=== PATIENT | male | born 1950 | race Caucasian/White ===

== ENCOUNTER → 2016-10-18 | Outpatient (CLI) | payer MEDICARE, OTHER ==
[2016-10-18 12:21] LABS: CH 30.8; CHCM 33.7; HCT 47.1 % (39.0-53.0); HDW 2.65; HGB 15.4 gm/dL (13.0-17.5); MCHC 32.7 g/dL (31.0-37.0); MCV 91.7 fL (80.0-100.0); Mean Platelet Volume 7.5; RBC 5.14 m/uL (4.30-5.90); RDW 12.4 % (11.5-15.5); WBC 12.4 k/uL (3.8-10.6)
[2016-10-18 12:24] LABS: Appearance,Urine Clear (Clear); Bilirubin,Urine Negative (Negative); Glucose,Urine (UA) Negative (Negative); Ketones,Urine Trace (Negative); Leukocyte Esterase,Urine Negative (Negative); Nitrite,Urine Negative (Negative); Protein,Urine Trace (Negative); Specific Gravity,Urine 1.018 (1.001-1.035); UA Billing (MACRO vs. MICRO) CHEM; Urobilinogen,Urine <2.0 mg/dL (<2.0)
[2016-10-18 12:52] LABS: ALT 28 U/L (21-72); AST 19 U/L (17-59); Alkaline Phosphatase 78 U/L (38-126); Anion Gap 13 mmol/L; Blood Urea Nitrogen 10 mg/dL (9-20); Calcium 9.9 mg/dL (8.4-10.2); Carbon Dioxide 25 mmol/L (22-30); Chloride 101 mmol/L (98-107); Glucose 174 mg/dL (74-99); Non-African American GFR(MDRD) >60 (>60 ml/min/1.73 sqM); Potassium 4.8 mmol/L (3.5-5.1); Sodium 139 mmol/L (137-145); Total Bilirubin 0.8 mg/dL (0.2-1.3); Total Protein 7.6 g/dL (6.3-8.2)
== END | disposition home or self-care (01) ==
LOC: LABWHC1 11:39
PROVIDERS: ATTEND Neurological Surgery
DX: Z01.812 Encounter for preprocedural laboratory examination (principal); M48.02 Spinal stenosis, cervical region; E11.9 Type 2 diabetes mellitus without complications; E78.5 Hyperlipidemia, unspecified; Z51.81 Encounter for therapeutic drug level monitoring; Z79.01 Long term (current) use of anticoagulants
CPT/HCPCS: 36415; 80053; 81003; 85027; 85730; 87070; 87086

== ENCOUNTER 2016-11-15 11:35 | Emergency (ER) | payer MEDICARE, OTHER ==
[2016-11-15 11:44] VITALS: RESP 18
[2016-11-15] MEDS ORDERED: HYDROmorphone 2 MG/ML 1 ML SYRINGE IM STA (12:23)
--- NOTE | 2016-11-15 12:55 | ED ---
General Adult HPI - General Chief complaint: Fall Stated complaint: POST OP NECK INJURY FROM FALL Time Seen by Provider: 11/15/16 11:48 Source: patient, RN notes reviewed, old records reviewed Mode of arrival: wheelchair Limitations: no limitations - History of Present Illness Initial comments: This is a 66-year-old male ER status post slip and fall. Patient has been fall S night with checking his furnace out. Patient is complaining of neck back and lower back pain. Patient does have significant surgical history for cervical stenosis as well as multiple different cervical spine surgeries. Patient most recently had surgery less than a month ago. His postop course has been well without difficulty, patient denies any neurological complaints. Patient denies loss of consciousness for fall, not on blood thinners. Patient states he is having neck pain. He went to bed last night with some neck pain evaluations and thought he was just bruised patient was able to walk when he woke this morning but when he awoke this morning his pain was worse. - Related Data Home Medications Medication Instructions Recorded Confirmed Ascorbic Acid [Vitamin C] 1,000 mg PO DAILY 11/15/16 11/15/16 Aspirin [Adult Low Dose Aspirin EC] 81 mg PO DAILY 11/15/16 11/15/16 Diazepam [Valium] 10 mg PO Q6H PRN 11/15/16 11/15/16 Empagliflozin [Jardiance] 10 mg PO DAILY 11/15/16 11/15/16 Linagliptin [Tradjenta] 5 mg PO DAILY 11/15/16 11/15/16 Simvastatin [Zocor] 40 mg PO DAILY 11/15/16 11/15/16 glipiZIDE [Glucotrol] 5 mg PO AC-BID 11/15/16 11/15/16 metFORMIN HCL [Glucophage] 500 mg PO QID 11/15/16 11/15/16 oxyCODONE-APAP 5-325MG [Percocet 1 tab PO Q8H PRN 11/15/16 11/15/16 5-325 mg] Allergies Allergy/AdvReac Type Severity Reaction Status Date / Time No Known Allergies Allergy Verified 11/15/16 12:18 Review of Systems ROS Statement: Those systems with pertinent positive or pertinent negative responses have been documented in the HPI. ROS Other: All systems not noted in ROS Statement are negative. Past Medical History Past Medical History: Diabetes Mellitus History of Any Multi-Drug Resistant Organisms: None Reported Past Surgical History: Cholecystectomy Additional Past Surgical History / Comment(s): neck surgery, right knee, rotator cuff right, mid back surgery Past Psychological History: No Psychological Hx Reported Smoking Status: Never smoker Past Alcohol Use History: None Reported Past Drug Use History: None Reported General Exam - General Exam Comments Initial Comments: Incision of left posterior neck is clean dry intact, patient has cervical spine collar in place, aspen Limitations: no limitations General appearance: alert, in no apparent distress Head exam: Present: atraumatic, normocephalic, normal inspection Eye exam: Present: normal appearance, PERRL, EOMI. Absent: scleral icterus, conjunctival injection, periorbital swelling ENT exam: Present: normal exam, mucous membranes moist Neck exam: Present: normal inspection. Absent: tenderness, meningismus, lymphadenopathy Respiratory exam: Present: normal lung sounds bilaterally. Absent: respiratory distress, wheezes, rales, rhonchi, stridor Cardiovascular Exam: Present: regular rate, normal rhythm, normal heart sounds. Absent: systolic murmur, diastolic murmur, rubs, gallop, clicks GI/Abdominal exam: Present: soft, normal bowel sounds. Absent: distended, tenderness, guarding, rebound, rigid Extremities exam: Present: normal inspection, full ROM, normal capillary refill. Absent: tenderness, pedal edema, joint swelling, calf tenderness Back exam: Present: normal inspection, tenderness, paraspinal tenderness, vertebral tenderness (Lumbar) Neurological exam: Present: alert, oriented X3, CN II-XII intact Psychiatric exam: Present: normal affect, normal mood Skin exam: Present: warm, dry, intact, normal color. Absent: rash Course Vital Signs 11/15/16 11/15/16 11:38 15:09 Temperature 97.7 F 98.3 F Pulse Rate 116 H 98 Respiratory 18 18 Rate Blood Pressure 144/88 153/77 O2 Sat by Pulse 97 97 Oximetry - Reevaluation(s) Reevaluation #1: 11/15/16 12:55 Patient's pain at this point is adequately controlled Reevaluation #2: 11/15/16 14:28 Patient remains without neurological deficit at this time, pain remained controlled, no loss of bowel or bladder EKG Findings - EKG Comments: EKG Findings:: EKG shows normal sinus rhythm rate of 97; NM 150, QRS 86, QTC 441 Medical Decision Making - Medical Decision Making 66 year for evaluation of fall, patient fall last night and complaining of back pain. Patient does have positive fracture of his level of L1 vertebra, unstable spinal fracture, we'll transfer patient under care of his spinal surgeon - Lab Data Result diagrams: 11/15/16 14:45 11/15/16 14:45 Lab Results 11/15/16 11/15/16 11/15/16 Range/Units 14:45 14:45 14:45 WBC 9.3 (3.8-10.6) k/uL RBC 4.55 (4.30-5.90) m/uL Hgb 13.6 (13.0-17.5) gm/dL Hct 41.9 (39.0-53.0) % MCV 92.1 (80.0-100.0) fL MCH 30.0 (25.0-35.0) pg MCHC 32.6 (31.0-37.0) g/dL RDW 13.3 (11.5-15.5) % Plt Count 389 (150-450) k/uL Neutrophils % 70 % Lymphocytes % 18 % Monocytes % 6 % Eosinophils % 3 % Basophils % 0 % Neutrophils # 6.5 (1.3-7.7) k/uL Lymphocytes # 1.7 (1.0-4.8) k/uL Monocytes # 0.6 (0-1.0) k/uL Eosinophils # 0.3 (0-0.7) k/uL Basophils # 0.0 (0-0.2) k/uL PT (9.0-12.0) sec INR (<1.1) APTT (22.0-30.0) sec Sodium 139 (137-145) mmol/L Potassium 5.7 H (3.5-5.1) mmol/L Chloride 101 (98-107) mmol/L Carbon Dioxide 25 (22-30) mmol/L Anion Gap 13 mmol/L BUN 13 (9-20) mg/dL Creatinine 0.69 (0.66-1.25) mg/dL Est GFR (MDRD) Af Amer >60 (>60 ml/min/1.73 sqM) Est GFR (MDRD) Non-Af >60 (>60 ml/min/1.73 sqM) Glucose 121 H (74-99) mg/dL Calcium 9.3 (8.4-10.2) mg/dL Phosphorus 4.1 (2.5-4.5) mg/dL Magnesium 1.8 (1.6-2.3) mg/dL Total Bilirubin 1.3 (0.2-1.3) mg/dL AST 54 (17-59) U/L ALT 27 (21-72) U/L Alkaline Phosphatase 65 (38-126) U/L Total Creatine Kinase 660 H (55-170) U/L CK-MB (CK-2) 2.3 (0.0-2.4) ng/mL CK-MB (CK-2) Rel Index 0.3 Troponin I <0.012 (0.000-0.034) ng/mL Total Protein 7.3 (6.3-8.2) g/dL Albumin 4.1 (3.5-5.0) g/dL 11/15/16 Range/Units 14:45 WBC (3.8-10.6) k/uL RBC (4.30-5.90) m/uL Hgb (13.0-17.5) gm/dL Hct (39.0-53.0) % MCV (80.0-100.0) fL MCH (25.0-35.0) pg MCHC (31.0-37.0) g/dL RDW (11.5-15.5) % Plt Count (150-450) k/uL Neutrophils % % Lymphocytes % % Monocytes % % Eosinophils % % Basophils % % Neutrophils # (1.3-7.7) k/uL Lymphocytes # (1.0-4.8) k/uL Monocytes # (0-1.0) k/uL Eosinophils # (0-0.7) k/uL Basophils # (0-0.2) k/uL PT 10.9 (9.0-12.0) sec INR 1.1 (<1.1) APTT 24.4 (22.0-30.0) sec Sodium (137-145) mmol/L Potassium (3.5-5.1) mmol/L Chloride (98-107) mmol/L Carbon Dioxide (22-30) mmol/L Anion Gap mmol/L BUN (9-20) mg/dL Creatinine (0.66-1.25) mg/dL Est GFR (MDRD) Af Amer (>60 ml/min/1.73 sqM) Est GFR (MDRD) Non-Af (>60 ml/min/1.73 sqM) Glucose (74-99) mg/dL Calcium (8.4-10.2) mg/dL Phosphorus (2.5-4.5) mg/dL Magnesium (1.6-2.3) mg/dL Total Bilirubin (0.2-1.3) mg/dL AST (17-59) U/L ALT (21-72) U/L Alkaline Phosphatase (38-126) U/L Total Creatine Kinase (55-170) U/L CK-MB (CK-2) (0.0-2.4) ng/mL CK-MB (CK-2) Rel Index Troponin I (0.000-0.034) ng/mL Total Protein (6.3-8.2) g/dL Albumin (3.5-5.0) g/dL - Radiology Data Radiology results: report reviewed (CT brain C-spine, CT lumbar spine does show unstable fractures of L1 vertebra), image reviewed Disposition Clinical Impression: Fall, Fracture of lumbar spine, Unstable burst fracture of lumbar vertebra Disposition: OTHER INSTITUTION NOT DEFINED Condition: Fair Referrals: Myles Paige MD [Primary Care Provider] - 1-2 days - Out of Hospital Transfer - Req. Specs Out of Hospital Transfer - Requested Specifics: Other Emergency Center ([facility])
--- NOTE | 2016-11-15 13:44 | CT ---
EXAMINATION TYPE: CT brain cspine wo con DATE OF EXAM: 11/15/2016 1:32 PM COMPARISON: MR cervical spine 16 September 2016 HISTORY: Pt fell on Lt side and hit head CT DLP: brain 1029.9, cervical 520.8 mGycm Automated exposure control for dose reduction was used. TECHNIQUE: CT scan of the head and cervical spine are performed without contrast. FINDINGS: There is no acute intracranial hemorrhage, mass effect, or midline shift identified. The ventricles and sulci are within normal limits in size. Hypodensity suggestive of possible choroidal fissure cyst on the right. The globes are intact and the visualized sinuses are clear. Remarkable fo r inflammatory change within the bilateral maxillary sinus, ethmoid air cells and sphenoid sinus Cervical spine is visualized in its entirety from C1 through upper thoracic levels and demonstrates s atisfactory alignment without evidence of acute fracture or dislocation. Multilevel spondylosis, fora heath encroachment is present especially bilateral C6-7 as well as C4-5 and left sides C2-3. Anterio r cervical fusion and discectomy changes are present at C3-C5, there are posterior fusion and laminec viki changes are also present C3-C6. There is multilevel spondylosis. The C1-C2 articulation is unrem arkable. IMPRESSION: 1. There is no acute fracture or dislocation evident in the cervical spine. 2. No acute intracranial hemorrhage, mass effect, or midline shift is seen.
--- NOTE | 2016-11-15 13:59 | CT ---
EXAMINATION TYPE: CT lumbar spine wo con DATE OF EXAM: 11/15/2016 1:32 PM COMPARISON: Lumbar spine 2016 2011 HISTORY: Fell on Lt side and hit head CT DLP: 1325.3 mGycm Automated exposure control for dose reduction was used. An unenhanced CT of the lumbar spine was performed. Bone and soft tissue window settings are submitt ed as well as coronal and sagittal reconstructions. FINDINGS: There are vertical fractures involving the pedicles of T12 bilaterally without significant displaceme nt. There is a minimally displaced burst type fracture involving the anterior middle columns of the L1 ve rtebral body. Right transverse process also shows minimally displaced fracture Degenerative disc changes are present especially at L5-S1, hypertrophic change also present suggestiv e of diffuse idiopathic skeletal hyperostosis. Minimal retrolisthesis grade 1 L1-2. Lumbar vertebral bodies show preserved height. Minimal posterior retropulsion due to the inferior endplate at L1 with associated disc causing slight anterior mass effect on the thecal sac. There is multilevel facet arth ropathy, mild central stenosis present L4-5, L3-4. Degenerative changes present at the sacroiliac joints. IMPRESSION: Unstable fracture involving the L1 vertebral body, posterior elements fracture bilaterall y suspected at T12. Report related to Dr. Samuels, telephonically at the time of interpretation of th e exam
[2016-11-15] MEDS ORDERED: ONDANSETRON 4 MG/2 ML VIAL IVP STA (14:17)
[2016-11-15] MEDS ORDERED: SODIUM CHLORIDE 0.9% 1,000 ML IV STA ×2 (14:17)
[2016-11-15] MEDS ORDERED: HYDROmorphone 1 MG/ML 1 ML SYRINGE IVP STA ×2 (14:17→18:17)
[2016-11-15 14:56] LABS: Basophils % (A) 0 %; CH 30.8; CHCM 33.6; Eosinophils # (A) 0.3 k/uL (0-0.7); Eosinophils % (A) 3 %; HCT 41.9 % (39.0-53.0); HDW 2.63; HGB 13.6 gm/dL (13.0-17.5); Luc # (Auto) 0.22; Luc % (Auto) 2; Lymphocytes # (A) 1.7 k/uL (1.0-4.8); Lymphocytes % (A) 18 %; MCHC 32.6 g/dL (31.0-37.0); MCV 92.1 fL (80.0-100.0); Mean Platelet Volume 7.1; Monocytes # (A) 0.6 k/uL (0-1.0); Monocytes % (A) 6 %; Neutrophils # (A) 6.5 k/uL (1.3-7.7); Neutrophils % (A) 70 %; RBC 4.55 m/uL (4.30-5.90); RDW 13.3 % (11.5-15.5); WBC 9.3 k/uL (3.8-10.6); WBC (Perox) 9.09
[2016-11-15 15:06] LABS: INR 1.1 (<1.1); Partial Thromboplastin Time 24.4 sec (22.0-30.0); Prothrombin Time 10.9 sec (9.0-12.0)
[2016-11-15 15:07] LABS: ALT 27 U/L (21-72); AST 54 U/L (17-59); Alkaline Phosphatase 65 U/L (38-126); Anion Gap 13 mmol/L; Blood Urea Nitrogen 13 mg/dL (9-20); Calcium 9.3 mg/dL (8.4-10.2); Carbon Dioxide 25 mmol/L (22-30); Chloride 101 mmol/L (98-107); Glucose 121 mg/dL (74-99); Magnesium 1.8 mg/dL (1.6-2.3); Non-African American GFR(MDRD) >60 (>60 ml/min/1.73 sqM); Phosphorous 4.1 mg/dL (2.5-4.5); Sodium 139 mmol/L (137-145); Total Bilirubin 1.3 mg/dL (0.2-1.3); Total Protein 7.3 g/dL (6.3-8.2)
[2016-11-15 15:19] LABS: Potassium 5.7 mmol/L (3.5-5.1)
[2016-11-15 15:35] LABS: Creatine Kinase 660 U/L (55-170)
[2016-11-15 15:48] LABS: Creatine Kinase MB 2.3 ng/mL (0.0-2.4); Troponin I <0.012 ng/mL (0.000-0.034)
[2016-11-15 17:27] VITALS: BP 117/84; PULSE 92; TEMP 97.9
[2016-11-15 18:05] LABS: Appearance,Urine Clear (Clear); Bilirubin,Urine Negative (Negative); Glucose,Urine (UA) 4+ (Negative); Ketones,Urine 1+ (Negative); Leukocyte Esterase,Urine Negative (Negative); Nitrite,Urine Negative (Negative); PH, Urine 5.5 (5.0-8.0); Protein,Urine Negative (Negative); Specific Gravity,Urine 1.026 (1.001-1.035); UA Billing (MACRO vs. MICRO) CHEM; Urobilinogen,Urine <2.0 mg/dL (<2.0)
== END 2016-11-15 19:23 | disposition other institution (70) ==
LOC: EC 11:35
DX: S32.011A Stable burst fracture of first lumbar vertebra, initial encounter for closed fracture (principal); W19.XXXA Unspecified fall, initial encounter; E11.9 Type 2 diabetes mellitus without complications; Z79.84 Long term (current) use of oral hypoglycemic drugs; Z79.82 Long term (current) use of aspirin; Z79.899 Other long term (current) drug therapy; Z98.890 Other specified postprocedural states
CPT/HCPCS: 36415; 93005; 80053; 82550; 82553; 83735; 84100; 84484; 85025; 85610; 85730; 81003; 72125; 72131; 70450; 99285; 96372; 96375; 96376; 96361; 96374; J1170 ×2; J2405

== ENCOUNTER → 2017-03-24 | Outpatient (CLI) | payer MEDICARE, OTHER ==
--- NOTE | 2017-03-24 15:48 | XR ---
Limited cervical spine HISTORY: Status post cervical fusion 3 views of the cervical spine correlated to prior 08/06/2016, CT cervical spine 11/15/2016 There is interval posterior cervical fusion present, posterior metallic hardware present, interval la minectomies at C3-4-5 and 6 compared with prior plain film. Anterior cervical fusion and discectomy c hanges are stable. There is anatomic alignment. IMPRESSION: Neurosurgical follow-up.
== END ==
LOC: RADXRMAIN 12:58
PROVIDERS: ATTEND Neurological Surgery
DX: M54.2 Cervicalgia (principal); Z98.1 Arthrodesis status
CPT/HCPCS: 72040

== ENCOUNTER → 2017-10-03 | Outpatient (CLI) | payer MEDICARE, OTHER ==
--- NOTE | 2017-10-03 13:00 | XR ---
EXAMINATION TYPE: XR hand complete RT DATE OF EXAM: 10/03/2017 COMPARISON: NONE HISTORY: Pain TECHNIQUE: Three views are submitted. FINDINGS: The osseous structures are intact. There is arthropathy of all DIP joints and first carpal metacarpal joint. No erosive changes. No acute fracture. Narrowing of the MCP joints of the first through fifth digits noted. IMPRESSION: 1. Arthropathy which appears hypertrophic most likely in the basis of osteoarthritis. Correlate clini lewis.
--- NOTE | 2017-10-03 13:00 | MR ---
EXAMINATION TYPE: MR shoulder RT wo con DATE OF EXAM: 10/03/2017 12:36 PM COMPARISON: NONE HISTORY: Right shoulder pain TECHNIQUE: Multiplanar multispin echo imaging of the right shoulder was performed. FINDINGS: Rotator cuff : There is thickening and heterogeneity of the supraspinatus tendon compatible with group supervisor yard sourav tendinopathy. Multifocal areas of increased signal noted within the substance of the supraspinatu s tendon, the undersurface as well as the articular surface compatible with the areas of partial tear . Complete full-thickness tear is not appreciated at this time. 2 foci partial tear involving the inf raspinatus tendon. Subscapularis tendon is intact. Mild tendinosis is however noted. Bursa: No bursal effusion or thickening is seen. Musculature: There is no muscular tear, contusion, or atrophy. Acromioclavicular joint : Moderately severe AC joint arthropathy with subacromial spurring resulting in moderate impingement. Partial resection distal clavicle. Correlate clinically. Osseous structures : There are no fractures or regions of abnormal bone marrow signal intensity. Long biceps tendon : The biceps tendon is normally situated within the bicipital groove. No complete or partial biceps tendon tear is present. Glenohumeral Joint fluid : There is no glenohumeral joint effusion. Cartilage and Bone : No focal hyaline cartilage defects are noted. No Hill-Sachs, reverse Hill-Sachs, or bony Bankart lesions are seen. Labrum : There are no SLAP or soft tissue Bankart lesions. No paralabral cysts are seen. OTHER FINDINGS : none IMPRESSION: 1. Chronic tendinopathy supraspinatus tendon with multifocal partial tears seen. No evidence for full -thickness tear. Small foci partial tear involving the infraspinatus tendon as well.
--- NOTE | 2017-10-03 13:02 | XR ---
EXAMINATION TYPE: XR cervical spine comp DATE OF EXAM: 10/03/2017 COMPARISON: 03/24/2017 HISTORY: Pain TECHNIQUE: Four views are submitted. FINDINGS: Postsurgical changes appear stable. Facet arthropathy noted. Degenerative disc disease C2-C3. There i s anterior hypertrophic spurring at C6-C7 with partial fusion of the disc space. Stable. Alignment is unchanged previous exam. Prevertebral soft tissue structures are stable. Odontoid view is suboptimal limited. Grossly on the lateral view odontoid intact. Foraminal encroachm ent in the postsurgical levels noted bilaterally. IMPRESSION: 1. Stable postoperative change with bilateral foraminal encroachment.
--- NOTE | 2017-10-03 13:03 | XR ---
EXAMINATION TYPE: XR shoulder limited RT DATE OF EXAM: 10/03/2017 COMPARISON: NONE HISTORY: Pain TECHNIQUE: Two views are submitted. FINDINGS: The osseous structures are intact. There is no acute fracture or dislocation. The AC joint is promi nent and there is hypertrophic changes with soft tissue ossification appears chronic. IMPRESSION: 1. Chronic AC joint arthropathy. Correlate with MRI as clinically warranted.
--- NOTE | 2017-10-03 13:18 | MR ---
EXAMINATION TYPE: MR cervical spine wo con DATE OF EXAM: 10/03/2017 12:36 PM COMPARISON: 09/16/1960 HISTORY: Cervicalgia Multiplanar MultiSpin echo imaging of the cervical spine was performed. C2-C3: Mild degenerative disc space narrowing. Right paracentral disc bulge. Right and left-sided for aminal encroachment mild in degree. C3-C4: Postsurgical changes of anterior cervical discectomy and fusion. Interval decompressive vamsi ctomy with pedicular screws in place. Alignment is anatomic. No evidence for recurrence or residual d isease. No evidence for central stenosis. C4-C5: Postsurgical changes of anterior cervical discectomy and fusion. Interval decompressive vamsi ctomy with pedicular screws in place. Alignment is anatomic. No evidence for recurrence or residual d isease. No evidence for central stenosis. C5-C6: Postsurgical changes of anterior cervical discectomy and fusion. Interval decompressive vamsi ctomy with pedicular screws in place. Alignment is anatomic. No evidence for recurrence or residual d isease. No evidence for central stenosis. C6-C7: Solid fusion changes. Laminectomy changes seen as well. Pedicular screws in place. No evidence for recurrent or residual disease. Mild posterior hypertrophic change. C7-T1: No evidence for degenerative disc disease. No disc bulge/herniation or protrusion. No Canal stenosis. Foramina are patent bilaterally. Cervical segments are intact. There is normal alignment. Cervical spinal cord is of normal signal. Craniovertebral junction relationships are within normal limits. IMPRESSION: 1. Postsurgical changes of ACDF and cervical laminectomy with pedicular screws in place in appropriat e postoperative alignment. 2. No evidence for recurrent or residual disease. 3 Mild disc bulging and foraminal encroachment bilaterally at C2-3.
== END | disposition home or self-care (01) ==
LOC: RADMRIMAIN 11:35
PROVIDERS: ATTEND Neurological Surgery
DX: M50.21 Other cervical disc displacement, high cervical region (principal); M12.811 Other specific arthropathies, not elsewhere classified, right shoulder; M12.841 Other specific arthropathies, not elsewhere classified, right hand; S46.911A Strain of unspecified muscle, fascia and tendon at shoulder and upper arm level, right arm, initial encounter; M25.811 Other specified joint disorders, right shoulder; Z98.890 Other specified postprocedural states
CPT/HCPCS: 72050; 72141

== ENCOUNTER 2020-03-27 07:17 | Day surgery (SDC) | payer MEDICARE, OTHER ==
[2020-03-23 10:16] VITALS: BMI 34.1
[~2020-03-27 07:17] MED LIST: LACTATED RINGERS 1,000 ML IV SCH
[2020-03-27 07:31] VITALS: RESP 16; TEMP 97.2
[2020-03-27 07:40] LABS: Glucose,Whole Blood 222 mg/dL (75-99)
[2020-03-27] MEDS ORDERED: PROPOFOL 10 MG/ML 20 ML VIAL IV ONE (08:18)
--- NOTE | 2020-03-27 08:49 | P.PCN ---
Date of Procedure: 03/27/20 Description of Procedure: BRIEF HISTORY: Patient is a 69-year-old male presenting for outpatient colonoscopy for screening for malignant neoplasm of the colon. No change in bowel habits, blood per rectum or abdominal pain. No family history of colon cancer. PROCEDURE PERFORMED: Colonoscopy with polypectomy. PREOPERATIVE DIAGNOSIS: Screening for malignant neoplasm of the colon. ESTIMATED BLOOD LOSS: Minimal. IV sedation per Anesthesia. PROCEDURE: After informed consent was obtained, the patient, was brought into the endoscopy unit. IV sedation was administered by Anesthesia under continuous monitoring. Digital rectal examination was normal. Initially the Olympus CF-190 flexible video colonoscope was then inserted in the rectum, gradually advanced into the cecum without any difficulty. Careful examination was performed as the scope was gradually being withdrawn. Ileocecal valve and the appendiceal orifice were visualized and appeared normal. Prep was excellent. Mucosa of the cecum, ascending colon, transverse colon, descending colon, sigmoid colon, and rectum appeared normal. 3 diminutive polyps measuring 2 mm in size were removed from the ileocecal valve, descending colon and rectum with cold forcep polypectomy. Retroflexion was performed in the rectum and no lesions were seen, low-grade internal hemorrhoids. The patient tolerated the procedure well. IMPRESSION: 3 diminutive polyps removed with cold forceps from the ileocecal valve, ascending colon and rectum. RECOMMENDATIONS: Findings of this examination were discussed with the patient and his family. Okay to resume diet. Okay to resume medication. Await pathology from polypectomy. Would recommend repeat colonoscopy in 5 years pending pathology.
[2020-03-27 09:06] VITALS: BP 159/72; PULSE 72
== END 2020-03-27 09:22 | disposition home or self-care (01) ==
LOC: ORWHC2ENDO 07:17
PROVIDERS: ATTEND Internal Medicine
DX: Z12.11 Encounter for screening for malignant neoplasm of colon (principal); K63.5 Polyp of colon; D12.4 Benign neoplasm of descending colon; K62.1 Rectal polyp; K64.8 Other hemorrhoids; F17.220 Nicotine dependence, chewing tobacco, uncomplicated; I10 Essential (primary) hypertension; E11.9 Type 2 diabetes mellitus without complications; K21.9 Gastro-esophageal reflux disease without esophagitis; E66.9 Obesity, unspecified; Z68.33 Body mass index [BMI] 33.0-33.9, adult; Z79.84 Long term (current) use of oral hypoglycemic drugs; Z79.899 Other long term (current) drug therapy; Z79.82 Long term (current) use of aspirin; Z98.890 Other specified postprocedural states; Z90.49 Acquired absence of other specified parts of digestive tract; Z87.39 Personal history of other diseases of the musculoskeletal system and connective tissue; Z96.652 Presence of left artificial knee joint
CPT/HCPCS: 88305; 45380; J2704

== ENCOUNTER → 2022-04-11 | Outpatient (CLI) | payer OTHER ==
--- NOTE | 2022-04-11 17:11 | CT ---
EXAMINATION TYPE: CT abdomen pelvis wo con DATE OF EXAM: 04/11/2022 HISTORY: Personal hx malignant neoplasm of prostate, elevated blood count. Oral contrast only. CT DLP: 1143.70 mGycm. Automated Exposure Control for Dose Reduction was Utilized. TECHNIQUE: CT scan of the abdomen and pelvis is performed with oral but without IV contrast. COMPARISON: NONE FINDINGS: Within the limitations of a non-contrast study, the following observations are made. LUNG BASES: Mild right basilar linear scarring and/or atelectasis.. LIVER/GB: Cholecystectomy clips. Visualized liver heterogeneously hypodense consistent with mild diff use fatty infiltration PANCREAS: No significant abnormality is seen. SPLEEN: No significant abnormality is seen. ADRENALS: No significant abnormality is seen. KIDNEYS: No renal calculi or hydronephrosis is seen bilaterally. BOWEL: Oral contrast reaches level of splenic flexure. No suspicious small or large bowel dilatation. Incidental normal-appearing appendix. GENITAL ORGANS: Mildly enlarged prostate consistent with BPH. Single right-sided pelvic phlebolith. LYMPH NODES: No greater than 1cm abdominal or pelvic lymph nodes are appreciated. OSSEOUS STRUCTURES: Moderate to severe multilevel spurring in the thoracolumbar spine. Vertebroplasty at L1 level. Moderate axial joint space loss both hips. OTHER: Small fat-containing right inguinal hernia. Small fat-containing umbilical hernia. IMPRESSION: No focal fluid collection or abscess. No acute infectious process identified. No suspicio us mass or adenopathy seen.
== END | disposition home or self-care (01) ==
LOC: RADCTMAIN 14:38
DX: Z85.46 Personal history of malignant neoplasm of prostate (principal)
CPT/HCPCS: 74176

== ENCOUNTER 2022-10-01 12:34 | Emergency (ER) | payer OTHER ==
--- NOTE | 2022-10-01 12:42 | ED ---
General Adult HPI - General Source: patient, RN notes reviewed Mode of arrival: ambulatory Limitations: no limitations <Yousuf Costa - Last Filed: 10/01/22 12:40> <Aguila Isidro - Last Filed: 10/01/22 15:49> - General Stated complaint: Arm pain Time Seen by Provider: 10/01/22 12:40 - History of Present Illness Initial comments: 71-year-old male presents emergency Department with chief complaint of leg pain, arm pain, neck pain. Patient states that he's had prior surgery of plates on his neck. Patient states that he's had increasing weakness of his upper extremity unable, to move his arms above his shoulder height. Patient states that he had surgery by Dr. Bonds. Patient denies any trauma. Denies chest pain or shortness breath. Patient states he cannot tolerate the pain this time. Initially his primary care physician thought it was from his questional medication which she stopped that he has had no changes. (Yousuf Costa) This is a 71-year-old male presents emergency Department complaining of bilateral arm and bilateral leg pain and weakness. Patient states been ongoing for about 6 months and is getting progressive worse per patient states he has not followed up with his doctor except for one time and then the doctor told him to come to the emergency department. Patient states the pain radiates from his neck down both arms and he has had a hard time lifting his arms above the hori zontal because he become extremely weak at that point. Patient denies any injury however had previous surgery to his neck. Patient states the legs abdomen having some tingling going down both legs for over 6 months and that has continued and now is getting some pain down both his legs. Patient again denies any recent injury to his back however he did have lower back surgery at one point. Patient denies any fever chills per patient agrees that this is been an ongoing problem and slowly progressively getting worse. Patient states he was taken off a statin because his doctor thought maybe that was causing his pain. (Aguila Isidro) - Related Data Home Medications Medication Instructions Recorded Confirmed Ascorbic Acid [Vitamin C] 1,000 mg PO DAILY 11/15/16 03/23/20 Aspirin [Adult Low Dose Aspirin EC] 81 mg PO DAILY 11/15/16 03/23/20 Simvastatin [Zocor] 20 mg PO HS 11/15/16 03/23/20 glipiZIDE [Glucotrol] 10 mg PO AC-BID 11/15/16 03/23/20 metFORMIN HCL [Glucophage] 1,000 mg PO BID 11/15/16 03/23/20 Alogliptin Benzoate [Alogliptin] 25 mg PO DAILY 03/23/20 03/27/20 Lidocaine 5% Patch [Lidoderm] 1 patch TOPICAL DAILY PRN 03/23/20 03/23/20 Omeprazole Magnesium [PriLOSEC OTC] 20 mg PO HS 03/23/20 03/23/20 lisinopriL [Zestril] 10 mg PO DAILY 03/23/20 03/23/20 Previous Rx's Medication Instructions Recorded predniSONE [Deltasone] 40 mg PO DAILY #8 tab 10/01/22 Allergies Allergy/AdvReac Type Severity Reaction Status Date / Time No Known Allergies Allergy Verified 10/01/22 12:44 Review of Systems ROS Other: All systems not noted in ROS Statement are negative. <Yousuf Costa - Last Filed: 10/01/22 12:40> ROS Other: All systems not noted in ROS Statement are negative. <Aguila Isidro - Last Filed: 10/01/22 15:49> ROS Statement: Those systems with pertinent positive or pertinent negative responses have been documented in the HPI. Past Medical History Past Medical History: Diabetes Mellitus, GERD/Reflux, Hearing Disorder / Deafness, Hyperlipidemia, Hypertension, Osteoarthritis (OA) History of Any Multi-Drug Resistant Organisms: None Reported Past Surgical History: Back Surgery, Cholecystectomy, Joint Replacement, Orthopedic Surgery Additional Past Surgical History / Comment(s): neck surgery, right rotator cuff , mid back surgery, total right knee,left knee arthroscopic x2, pain clinic injections Past Anesthesia/Blood Transfusion Reactions: No Reported Reaction Past Psychological History: No Psychological Hx Reported Past Alcohol Use History: Rare Additional Past Alcohol Use History / Comment(s): chews tabacco -daily Past Drug Use History: None Reported - Past Family History Mother Family Medical History: No Reported History <Yousuf Costa - Last Filed: 10/01/22 12:40> General Exam <Aguila Isidro - Last Filed: 10/01/22 15:49> - General Exam Comments Initial Comments: GENERAL: Patient is well-developed and well-nourished. Patient is nontoxic and well- hydrated and is in mild distress. ENT: Neck is soft and supple. No significant lymphadenopathy is noted. Oropharynx is clear. Moist mucous membranes. Neck has full range of motion without eliciting any pain. EYES: The sclera were anicteric and conjunctiva were pink and moist. Extraocular movements were intact and pupils were equal round and reactive to light. Eyelids were unremarkable. PULMONARY: Unlabored respirations. Good breath sounds bilaterally. No audible rales rhonchi or wheezing was noted. CARDIOVASCULAR: There is a regular rate and rhythm without any murmurs gallops or rubs. ABDOMEN: Soft and nontender with normal bowel sounds. SKIN: Skin is clear with no lesions or rashes and otherwise unremarkable. NEUROLOGIC: Patient is alert and oriented x3. Cranial nerves II through XII are grossly in tact. Motor and sensory are also intact. Normal speech, volume and content. Symmetrical smile. MUSCULOSKELETAL: Patient can lift his arms above horizontal but he is weak when he brings his arms above horizontal. Patient has normal sensation to his hands and feet however the feet he states her tingly like they're going to sleep sometimes. Patient is able to lift both legs greater than 60 it does cause him some lower back pain bilaterally LYMPHATICS: No significant lymphadenopathy is noted PSYCHIATRIC: Normal psychiatric evaluation. (Aguila Isidro) Course Vital Signs 10/01/22 10/01/22 12:39 13:54 Temperature 98.7 F Pulse Rate 109 H 92 Respiratory 20 18 Rate Blood Pressure 181/124 150/81 O2 Sat by Pulse 97 96 Oximetry Medical Decision Making - Lab Data Result diagrams: 10/01/22 12:53 10/01/22 12:53 <Aguila Isidro - Last Filed: 10/01/22 15:49> - Medical Decision Making Patient got steroids Dilaudid and some Toradol in the emergency department was feeling considerably better. Patient will follow-up the primary medical care doctor Was pt. sent in by a medical professional or institution? @ -No Did you speak to anyone other than the patient for history? @ -Father gave quite a bit of the past history and past medical history. Did you review nursing and triage notes? @ -I agree with the triage and nursing notes Were old charts reviewed? @ -No Differential Diagnosis? @ -Depression, drug use, psychosis, anxiety, this is not a complete list EKG interpreted by me (3pts min.)? @ -None X-rays interpreted by me (1pt min.)? @ -None CT interpreted by me (1pt min.)? @ -None U/S interpreted by me (1pt. min.)? @ -None What testing was considered but not performed? (CT, X-rays, U/S, labs)? Why? @ -None What meds were considered but not given? Why? @ -None Did you discuss the management of the patient with other professionals? @ -No Did you reconcile home meds? @ -No Was smoking cessation discussed for >3mins.? @ -No Was critical care preformed (if so, how long)? @ -No Were there social determinants of health that impacted care today? How? (Homelessness, low income, unemployed, alcoholism, drug addiction, transportation, low edu. Level, literacy, decrease access to med. care, snf, rehab)? @ -No Was there de-escalation of care discussed even if they declined? (Discuss DNR or withdrawal of care, Hospice)? @ -No What co-morbidities impacted this encounter? (DM, HTN, Smoking, COPD, CAD, Cancer, CVA, Hep., AIDS, mental health diagnosis, sleep apnea, morbid obesity)? @ -No Was patient admitted / discharged? @ -Patient will be discharged home. Patient was given pain medication and steroids and was feeling considerably better on discharge patient will follow-up the primary medical care doctor and try to follow-up with the back surgeon Undiagnosed new problem with uncertain prognosis? @ -None Drug Therapy requiring intensive monitoring for toxicity (Heparin, Nitro, Insulin, Cardizem)? @ -None Were any procedures done? @ -None Diagnosis/symptom? @ -Cervical radiculopathy Acute, or Chronic, or Acute on Chronic? @ -Acute Uncomplicated (without systemic symptoms) or Complicated (systemic symptoms)? @ -Uncomplicated Side effects of treatment? @ -No Exacerbation, Progression, or Severe Exacerbation] @ -No Poses a threat to life or bodily function? @ -No Diagnosis/symptom? @ -Bilateral sciatica Acute, or Chronic, or Acute on Chronic? @ -Acute Uncomplicated (without systemic symptoms) or Complicated (systemic symptoms)? @ -None Side effects of treatment? @ -No Exacerbation, Progression, or Severe Exacerbation] @ -No Poses a threat to life or bodily function? @ -No (Aguila Isidro) - Lab Data Lab Results 10/01/22 10/01/22 Range/Units 12:53 12:53 WBC 10.4 (3.8-10.6) k/uL RBC 4.89 (4.30-5.90) m/uL Hgb 15.2 (13.0-17.5) gm/dL Hct 45.2 (39.0-53.0) % MCV 92.3 (80.0-100.0) fL MCH 31.1 (25.0-35.0) pg MCHC 33.7 (31.0-37.0) g/dL RDW 12.3 (11.5-15.5) % Plt Count 337 (150-450) k/uL MPV 8.0 Neutrophils % 67 % Lymphocytes % 22 % Monocytes % 4 % Eosinophils % 5 % Basophils % 1 % Neutrophils # 7.0 (1.3-7.7) k/uL Lymphocytes # 2.3 (1.0-4.8) k/uL Monocytes # 0.4 (0-1.0) k/uL Eosinophils # 0.5 (0-0.7) k/uL Basophils # 0.1 (0-0.2) k/uL Sodium 136 L (137-145) mmol/L Potassium 4.4 (3.5-5.1) mmol/L Chloride 104 (98-107) mmol/L Carbon Dioxide 24 (22-30) mmol/L Anion Gap 8 mmol/L BUN 17 (9-20) mg/dL Creatinine 0.71 (0.66-1.25) mg/dL Est GFR (CKD-EPI)AfAm >90 (>60 ml/min/1.73 sqM) Est GFR (CKD-EPI)NonAf >90 (>60 ml/min/1.73 sqM) Glucose 263 H (74-99) mg/dL Calcium 9.1 (8.4-10.2) mg/dL Magnesium 1.6 (1.6-2.3) mg/dL Total Bilirubin 0.5 (0.2-1.3) mg/dL AST 18 (17-59) U/L ALT 16 (4-49) U/L Alkaline Phosphatase 90 (38-126) U/L Creatine Kinase 27 L (55-170) U/L Total Protein 6.8 (6.3-8.2) g/dL Albumin 4.1 (3.5-5.0) g/dL Disposition <Yousuf Costa - Last Filed: 10/01/22 12:40> Is patient prescribed a controlled substance at d/c from ED?: No Time of Disposition: 15:45 <Aguila Isidro - Last Filed: 10/01/22 15:49> Clinical Impression: Sciatica, Cervical radiculopathy Disposition: HOME SELF-CARE Condition: Good Prescriptions: predniSONE [Deltasone] 40 mg PO DAILY #8 tab Referrals: [facility] [Primary Care Provider] - 1-2 days
[2022-10-01 12:44] VITALS: TEMP 98.7
[2022-10-01 13:00] LABS: Basophils # (A) 0.1 k/uL (0-0.2); Basophils % (A) 1 %; Eosinophils # (A) 0.5 k/uL (0-0.7); Eosinophils % (A) 5 %; HCT 45.2 % (39.0-53.0); HGB 15.2 gm/dL (13.0-17.5); Lymphocytes # (A) 2.3 k/uL (1.0-4.8); Lymphocytes % (A) 22 %; MCH 31.1 pg (25.0-35.0); MCHC 33.7 g/dL (31.0-37.0); MCV 92.3 fL (80.0-100.0); Monocytes # (A) 0.4 k/uL (0-1.0); Monocytes % (A) 4 %; Neutrophils % (A) 67 %; Platelet Count 337 k/uL (150-450); RBC 4.89 m/uL (4.30-5.90); RDW 12.3 % (11.5-15.5); WBC 10.4 k/uL (3.8-10.6)
[2022-10-01 13:14] LABS: ALT 16 U/L (4-49); AST 18 U/L (17-59); African American GFR (CKD) >90 (>60 ml/min/1.73 sqM); Albumin 4.1 g/dL (3.5-5.0); Alkaline Phosphatase 90 U/L (38-126); Anion Gap 8 mmol/L; Blood Urea Nitrogen 17 mg/dL (9-20); Calcium 9.1 mg/dL (8.4-10.2); Carbon Dioxide 24 mmol/L (22-30); Chloride 104 mmol/L (98-107); Creatine Kinase 27 U/L (55-170); Glucose 263 mg/dL (74-99); Magnesium 1.6 mg/dL (1.6-2.3); Non-African American GFR(CKD) >90 (>60 ml/min/1.73 sqM); Potassium 4.4 mmol/L (3.5-5.1); Sodium 136 mmol/L (137-145); Total Bilirubin 0.5 mg/dL (0.2-1.3); Total Protein 6.8 g/dL (6.3-8.2)
--- NOTE | 2022-10-01 13:27 | XR ---
EXAMINATION TYPE: XR cervical spine comp DATE OF EXAM: 10/01/2022 1:22 PM INDICATION: Patient age:Male; 71 years old; Reason for study: pain, prior surgery; COMPARISON: Radiograph on 02/15/2018, CT C-spine 11/15/2017. TECHNIQUE: The cervical spine was imaged in frontal, lateral, odontoid and bilateral oblique. FINDINGS: Post fixation changes to the cervical spine with hardware extending from C3 through C6. The re is fusion changes. Hardware appears intact. No evidence of significant neural foraminal stenosis. No evidence for acute fracture. IMPRESSION: 1. No fracture or dislocation. 2. Post surgical changes without evidence for hardware failure.
[2022-10-01] MEDS ORDERED: hydrALAZINE HCL 20 MG/ML 1 ML VIAL IVP STA (13:52)
[2022-10-01] MEDS ORDERED: HYDROmorphone 0.5 MG/0.5 ML SYRINGE IVP STA (13:53)
[2022-10-01] MEDS ORDERED: predniSONE 50 MG TAB PO STA (13:53)
[2022-10-01] MEDS ORDERED: KETOROLAC 15 MG/ML 1 ML VIAL IVP STA (13:53)
[2022-10-01 13:56] VITALS: BP 150/81; PULSE 92; RESP 18
== END 2022-10-01 16:13 | disposition home or self-care (01) ==
LOC: EC 12:34
DX: M54.31 Sciatica, right side (principal); M54.12 Radiculopathy, cervical region; I10 Essential (primary) hypertension; E11.9 Type 2 diabetes mellitus without complications; K21.9 Gastro-esophageal reflux disease without esophagitis; E78.5 Hyperlipidemia, unspecified; M19.90 Unspecified osteoarthritis, unspecified site; Z79.82 Long term (current) use of aspirin; Z79.899 Other long term (current) drug therapy; Z79.84 Long term (current) use of oral hypoglycemic drugs
CPT/HCPCS: 36415; 80053; 82550; 83735; 85025; 72050; 99284; 96374; 96375; J1885; J7512; J1170

== ENCOUNTER → 2023-03-05 | Outpatient (CLI) | payer OTHER ==
--- NOTE | 2023-03-06 08:33 | MR ---
EXAMINATION TYPE: MR knee LT wo con DATE OF EXAM: 03/05/2023 COMPARISON: None HISTORY: 72-year-old male M25.562, Left knee pain and swelling TECHNIQUE: Multiplanar, multisequence imaging of the left knee is performed without IV contrast. FINDINGS: The ACL is torn. There is abnormal heterogeneity and thickening of the PCL with may be due to prominent redundancy rather than additional tear. There is some edema involving the deep fibers of the MCL. Superficial fibers are intact. LCL complex is intact. There is severe, full-thickness cartilage loss throughout the medial compartment with degenerative elizondo bchondral marrow signal changes and prominent marginal spurring. Diffusely degenerated, torn, and ext ruded medial meniscus. Degenerative signal and scattered inner margin fraying throughout the lateral meniscus which is parti ally discoid. No well-defined tear is identified at this time. Mild to moderate irregular cartilage loss throughout the mid and posterior weightbearing aspect of th e lateral femoral condyle articular surface. Prominent marginal spurring is present. Some reactive elizondo bchondral marrow signal change especially along the mid central aspect of the lateral femoral condyle . Susceptibility artifact along the anterolateral lip of the lateral tibial plateau. Correlate for prio r postsurgical change here. Bulky marginal spurring in the patellofemoral compartment with moderate thickness focal fissures maira g the medial trochlear facet and scattered mild superficial cartilage irregularity throughout the rem ainder of the compartment. Extensor mechanism is intact. Mild intermediate signal involving the deep proximal patellar tendon fi bers. Anterior, prepatellar soft tissue swelling. Moderate knee joint effusion. There is a moderate to large sized Carbajal's cyst measuring 8.1 x 4.6 cm and containing a 2.4 cm loose body. Minimal leakage of the Carbajal's cyst is noted. There is aberrant high takeoff of the anterior tibial artery to course deep to the popliteus muscle. Mild generalized muscle atrophy. No suspicious bone marrow replacement. IMPRESSION: 1. Severe medial compartmental OA with full-thickness cartilage loss. The medial meniscus is diffusel y degenerated, torn, and extruded. 2. Torn ACL. Thickened PCL with abnormal signal. Unable to exclude underlying tear here as well. 3. Grade 1 MCL sprain. 4. Scattered mild degenerative change throughout the lateral and patellofemoral compartments with pro minent marginal spurring. 5. Moderate joint effusion and a moderate to large leaking Carbajal's cyst measuring up to 8.1 cm. There is a loose body measuring 2.4 cm within. 6. Note incidental aberrant high takeoff of the anterior tibial artery.
== END | disposition home or self-care (01) ==
LOC: RADMRIMAIN 14:40
DX: S83.412A Sprain of medial collateral ligament of left knee, initial encounter (principal); M17.12 Unilateral primary osteoarthritis, left knee; M24.19 Other articular cartilage disorders, other specified site; M25.462 Effusion, left knee; M71.22 Synovial cyst of popliteal space [Baker], left knee

== ENCOUNTER → 2023-03-20 | Outpatient (CLI) | payer OTHER | END | disposition home or self-care (01) | LOC: LABPAT 11:15 | PROVIDERS: ATTEND Orthopaedic Surgery | DX: Z01.812 Encounter for preprocedural laboratory examination (principal); M17.12 Unilateral primary osteoarthritis, left knee; Z22.322 Carrier or suspected carrier of Methicillin resistant Staphylococcus aureus | CPT/HCPCS: 87070 ==

== ENCOUNTER 2023-04-25 08:18 | Day surgery (SDC) | payer OTHER ==
--- NOTE | 2023-04-24 08:42 | P.HPOR ---
History of Present Illness H&P Date: 04/24/23 Chief Complaint: Left knee pain The patient is a 72-year-old retired male who presents with progressive left knee pain for the past 8-9 months. He is having pain with weightbearing activities. He is having night symptoms. He tried therapy in addition to medications without much relief. He has daily pain that limits him. Review of Systems As per HPI Past Medical History Past Medical History: Diabetes Mellitus, GERD/Reflux, Hearing Disorder / Deafness, Hyperlipidemia, Hypertension, Osteoarthritis (OA) History of Any Multi-Drug Resistant Organisms: None Reported Past Surgical History: Back Surgery, Cholecystectomy, Joint Replacement, Orthopedic Surgery Additional Past Surgical History / Comment(s): neck surgery, right rotator cuff , mid back surgery, total right knee,left knee arthroscopic x2, pain clinic injections Past Anesthesia/Blood Transfusion Reactions: No Reported Reaction Past Psychological History: No Psychological Hx Reported Past Alcohol Use History: Rare Additional Past Alcohol Use History / Comment(s): chews tabacco -daily Past Drug Use History: None Reported - Past Family History Mother Family Medical History: No Reported History Medications and Allergies Home Medications Medication Instructions Recorded Confirmed Type Ascorbic Acid [Vitamin C] 1,000 mg PO DAILY 11/15/16 03/23/20 History Aspirin [Adult Low Dose Aspirin EC] 81 mg PO DAILY 11/15/16 03/23/20 History Simvastatin [Zocor] 20 mg PO HS 11/15/16 03/23/20 History glipiZIDE [Glucotrol] 10 mg PO AC-BID 11/15/16 03/23/20 History metFORMIN HCL [Glucophage] 1,000 mg PO BID 11/15/16 03/23/20 History Alogliptin Benzoate [Alogliptin] 25 mg PO DAILY 03/23/20 03/27/20 History Lidocaine 5% Patch [Lidoderm] 1 patch TOPICAL DAILY PRN 03/23/20 03/23/20 History Omeprazole Magnesium [PriLOSEC OTC] 20 mg PO HS 03/23/20 03/23/20 History lisinopriL [Zestril] 10 mg PO DAILY 03/23/20 03/23/20 History predniSONE [Deltasone] 40 mg PO DAILY #8 tab 10/01/22 Rx Allergies Allergy/AdvReac Type Severity Reaction Status Date / Time No Known Allergies Allergy Verified 10/01/22 12:44 Physical Examination - Knee left Appearance: effusion Effusion grade: grade 1 Varus alignment in stance: 5 degrees Tenderness with palpation: medial Pain: throughout ROM Gait: limping ROM: extension: -10 degrees ROM: flexion: 90 degrees Crepitus with motion: Yes Strength: extension: 5/5 Strength: flexion: 5/5 Meniscal tests: medial meniscal tests: positive, medial joint line pain: positive Results The patient is a well-developed well-nourished male approximately 5 foot 10, 230 pounds. HEENT exam is nonfocal, neck is supple. He has painless passive motion of the left hip. Straight leg raise is negative. His distal neurovascular appears intact in the left lower extremity. - Diagnostic results Knee x-ray: image reviewed (3 views of the left knee obtain the office shows severe medial and patellofemoral compartment narrowing with [id number] changes and subchondral sclerosis.) Assessment and Plan Assessment: Left knee severe medial and patellofemoral compartment osteoarthrosis Plan: I talked to the patient at length regarding his condition and treatment options. He is having significant pain and mechanical symptoms related to his left knee osteoarthrosis despite previous conservative measures. After thorough discussion he opted to proceed with surgery. We'll plan to see her left total knee arthroplasty. We will institute DVT prophylaxis postoperatively. Risks and benefits were discussed at length in layman's terms.
[~2023-04-25 08:18] MED LIST changes: +ACETAMINOPHEN TAB 500 MG TAB PO PRN; -LACTATED RINGERS 1,000 ML IV SCH; +MELOXICAM 7.5 MG TAB PO PRN; +TRANEXAMIC 1,000 MG/100ML-NACL 1,000 MG in SALINE 1 100ML.BAG IVPB PRN
[2023-04-25] MEDS ORDERED: HYDROmorphone 0.5 MG/0.5 ML SYRINGE IVP PRN ×3 (08:32→11:43)
[2023-04-25] MEDS ORDERED: fentaNYL (PF) 50 MCG/ML 2 ML AMP IVP PRN (08:32)
[2023-04-25] MEDS ORDERED: DEXAMETHASONE SOD PHOSPHATE 4 MG/ML 1 ML VIAL IV ONE (08:32)
[2023-04-25] MEDS ORDERED: METOCLOPRAMIDE 5 MG/ML 2 ML VIAL IVP PRN (08:32)
[2023-04-25] MEDS ORDERED: ONDANSETRON 4 MG/2 ML VIAL IVP ONE (08:32)
[2023-04-25] MEDS ORDERED: MIDAZOLAM 2 MG/2 ML VIAL IV PRN (08:32)
[2023-04-25] MEDS ORDERED: LIDOCAINE 1% (10MG/ML) FOR IV START INTRADERMA PRN (08:32)
[2023-04-25] MEDS: LACTATED RINGERS 1,000 ML IV SCH ×2 (09:05→16:41)
[2023-04-25 09:17] LABS: Glucose,Whole Blood 151 mg/dL (70-110)
[2023-04-25 09:18] LABS: HCT 44.4 % (39.0-53.0); HGB 15.1 gm/dL (13.0-17.5); MCH 31.8 pg (25.0-35.0); MCV 93.5 fL (80.0-100.0); Mean Platelet Volume 7.9; Platelet Count 286 k/uL (150-450); RBC 4.74 m/uL (4.30-5.90); WBC 8.5 k/uL (3.8-10.6)
[2023-04-25 09:27] LABS: INR 0.9 (<1.2); Partial Thromboplastin Time 23.5 sec (22.0-30.0); Prothrombin Time 9.9 sec (9.0-12.0)
[2023-04-25 09:34] LABS: African American GFR (CKD) >90 (>60 ml/min/1.73 sqM); Anion Gap 11 mmol/L; Blood Urea Nitrogen 20 mg/dL (9-20); Calcium 9.2 mg/dL (8.4-10.2); Carbon Dioxide 25 mmol/L (22-30); Chloride 104 mmol/L (98-107); Glucose 160 mg/dL (74-99); Non-African American GFR(CKD) 85 (>60 ml/min/1.73 sqM); Potassium 4.4 mmol/L (3.5-5.1); Sodium 140 mmol/L (137-145)
[2023-04-25] MEDS ORDERED: MIDAZOLAM 2 MG/2 ML VIAL IVP ONE (09:41)
[2023-04-25] MEDS ORDERED: fentaNYL (PF) 50 MCG/ML 2 ML AMP IVP ONE (09:41)
[2023-04-25] MEDS ORDERED: diphenhydrAMINE 50 MG/ML 1 ML VIAL ONE (09:58)
[2023-04-25] MEDS ORDERED: TRANEXAMIC 1,000 MG/100ML-NACL PREMIX BAG ONE (09:58)
[2023-04-25] MEDS ORDERED: SODIUM CHLORIDE 0.9% (PF) 10 ML VIAL ONE (09:58)
[2023-04-25] MEDS ORDERED: ROPIVACAINE 5 MG/ML 30 ML VIAL ONE (09:58)
[2023-04-25] MEDS ORDERED: MIDAZOLAM 2 MG/2 ML VIAL ONE (09:58)
[2023-04-25] MEDS ORDERED: PROPOFOL 10 MG/ML 20 ML VIAL IV ONE (09:58)
[2023-04-25] MEDS ORDERED: PHENYLEPHRINE-0.9% NACL SYG 1,000 MCG/10 ML SYRINGE ONE (09:58)
[2023-04-25] MEDS ORDERED: ceFAZolin 3,000 MG in SODIUM CHLORIDE 0.9% IRRIGATIO 3,000 ML IRRIGATION ONE (10:35)
[2023-04-25] MEDS ORDERED: LACTATED RINGERS 1,000 ML IV ONE (10:50)
--- NOTE | 2023-04-25 10:58 | P.ANPRN ---
Procedure Note - Anesthesia - Nerve Block Performed Left Adductor Canal Time Out Performed: Yes (:41) Date of Procedure: 04/25/23 Procedure Start Time: Procedure Stop Time: :48 Location of Patient: PreOp Indication: Acute Post-Operative Pain, Requested by Surgeon (Dr Hoyt) Preparation: Sterile Prep, Sterile Dressing Position: Supine Catheter: Indwelling Needle Types: Pajunk Needle Gauge: 21 Ultrasound used to visualize needle placement: Yes Ultrasound used to observe medication spread: Yes Injectate: 0.5% Ropivacaine (see comment for volume) (20cc) Blood Aspirated: No Pain Paresthesia on Injection Noted: No Resistance on Injection: Normal Image Stored and Saved: Yes Events: Uneventful and Well Tolerated
--- NOTE | 2023-04-25 10:59 | P.ANPRN ---
Procedure Note - Anesthesia - Nerve Block Performed Left iPack Time Out Performed: Yes Date of Procedure: 04/25/23 Procedure Start Time: 09:49 Procedure Stop Time: 09:54 Location of Patient: PreOp Indication: Acute Post-Operative Pain, Requested by Surgeon (Dr Hoyt) Sedation Type: Sedate with meaningful contact maintained Preparation: Sterile Prep Position: Supine Catheter: None Needle Gauge: 21 Ultrasound used to visualize needle placement: Yes Ultrasound used to observe medication spread: Yes Injectate: 0.5% Ropivacaine (see comment for volume) (15cc +5cc PF Normal) Blood Aspirated: No Pain Paresthesia on Injection Noted: No Resistance on Injection: Normal Image Stored and Saved: Yes Events: Uneventful and Well Tolerated
[2023-04-25] MEDS ORDERED: HYDROcodone/APAP 5-325MG 1 EACH TAB PO PRN (11:43)
[2023-04-25] MEDS ORDERED: NALOXONE 0.4 MG/ML 1 ML VIAL IV PRN (11:43)
[2023-04-25] MEDS ORDERED: hydrOXYzine pamoate 25 MG CAP PO PRN (11:43)
[2023-04-25] MEDS ORDERED: MAGNESIUM HYDROXIDE 2,400 MG/30 ML CUP PO PRN (11:43)
--- NOTE | 2023-04-25 12:08 | P.OP ---
Date of Procedure: 04/25/23 Preoperative Diagnosis: Left knee severe tricompartmental osteoarthrosis Postoperative Diagnosis: Same Procedure(s) Performed: Left total knee arthroplastycementedposterior stabilized Implants: Depuy Attune size 7 cemented femoral component, size 6 cemented tibial component, 11 mm articular surface, 38 mm cemented patellar component. This is a posterior stabilized implant. Anesthesia: regional, spinal Surgeon: Antione Hoyt Ramp Supervisor #1: Andrey Peacock Estimated Blood Loss (ml): 50 Pathology: none sent Condition: stable Disposition: PACU Indications for Procedure: The patient's a 72-year-old male who presents with progressive left knee pain secondary to osteoarthrosis despite conservative measures. A discussion of the risks and benefits of operative intervention versus continued conservative measures was made with the patient. He opted to proceed with surgery. Operative risks to include infection, neurovascular injury, development of blood clots, component loosening/failure and need for subsequent procedures was discussed. Informed consent was obtained. Operative Findings: As below Description of Procedure: The patient was brought to the operating room, and after induction of spinal anesthesia the left lower extremity was prepped and draped in a normal fashion. The tourniquet was inflated to 270 mm marker. A longitudinal incision extending 3 finger breaths above the superior pole of patella extending to the medial aspect the tibial tubercle was then made. The skin and subcutaneous tissues were divided sharply. Electrocautery was used for hemostasis. A medial parapatellar arthrotomy was performed. The medial soft tissues to include the superficial and deep portions of the medial collateral ligament were elevated subperiosteally. The patella was everted. A portion of the retropatellar fat pad was excised sharply. The anterior cruciate ligament was sacrificed. Blunt retractors were placed. A starting hole was made in the distal femur 1 cm anterior to the posterior cruciate ligament origin. An intramedullary femoral guide was then inserted planning on 5 valgus distal cut with 9 mm distal resection. The cutting block was pinned in place. The distal cut was then made. The posterior referencing sizing guide was utilized. I felt size 7 was most appropriate. 3 of external rotation was built into the system and verif ied off the trans-epicondylar axis and the posterior condyles. The cutting block was pinned in place. The anterior, posterior, and chamfer cuts then made. Bone fragments were removed. The intercondylar guide was placed and the notch cut was made with a sagittal saw. The bone block was removed in one fragment. The trial component was then placed. There is good anterior to posterior and medial to lateral fit. The distal peg holes were drilled. The trial component was removed. Attention was then paid towards preparing the proximal tibia. An extra medullary guide was utilized in line with the tibial shaft and second metatarsal distally. I planned on 1 mm resection from the medial compartment. The cutting block was pinned in place. The proximal tibial cut was then made. The bone was removed in one fragment. The remnants of the medial and lateral menisci were excised at the capsular junction with electrocautery. The tibia sized most appropriately at size 6. The trial femoral and tibial components were placed along with a 11 mm articular surface. I was able to obtain full flexion and extension with internal and external rotation. After several flexion and extension cycles, the tibial rotation was marked with electrocautery line with the medial one third of the tibial tubercle. Attention was then paid towards preparing the patella. A patella reamer was utilized taking stem to 14 mm of bone stock. A good flush cut was made. The patella sized most appropriately 38 mm. The peg holes were drilled. The trial components placed. I had good patellofemoral tracking with no hands technique. The trial components were then removed. The tibia was prepared in the appropriate rotation with appropriate drill and keel punch. The posterior osteophytes were removed with a curved osteotome. The flexion and extension gaps were checked and felt to be symmetric at 11 mm. A trial components were then removed. The bony surfaces were prepared with pulsatile lavage and dried. The tibial component was then cemented place was fully seated. Excess cement was removed. The femoral component cemented place and was fully seated. Excess cement was removed. The trial 11 mm articular surface was placed and the knee was put in full extension. The patella component was cemented place. After the cement had sufficiently hardened, the knee was again taken through a range of motion. Again I was able to obtain full flexion and extension with varus and valgus stress. The trial 11 mm articular surface was removed and the final one inserted. This was fully seated. Care was taken to avoid any soft tissue interposition. Pulsatile lavage was again utilized. The medial parapatellar arthrotomy was closed with #2 Ethibond suture. The tourniquet was deflated with approximately 60 minutes total tourniquet time. Final hemostasis was obtained with the cautery. There was minimal bleeding therefore a deep drain was not placed. The subcutaneous tissues were reapproximated with interrupted 2-0 Vicryl sutures. The skin was reapproximated with 3-0 subcuticular strata fix suture. Skin tape and adhesive was applied. A sterile dressing was applied. The patient was awoken from sedation and transferred to recovery room in good condition. Blood loss was estimated at 50 mL. No complications were incurred. Sponge and needle counts were correct at the end of the case. Andrey SANTACRUZ assisted during the major components of this case to include exposure, bone resection, implantation, and closure.
[2023-04-25] MEDS ORDERED: ROPIVACAINE 1,100 MG, SODIUM CHLORIDE 0.9% 500 ML 330 ML, EMPTY PAIN BALL 1 EACH MISCELLANE PRN ×2 (12:44)
--- NOTE | 2023-04-25 12:45 | XR ---
EXAMINATION TYPE: XR knee limited LT DATE OF EXAM: 04/25/2023 CLINICAL HISTORY: Postoperative evaluation Two views of the left knee are submitted. Identified are changes of total knee arthroplasty with fem oral and tibial components appearing well seated. Postsurgical soft tissue changes are noted. Align ment is anatomic.
--- NOTE | 2023-04-25 14:15 | P.CONS ---
History of Present Illness - Reason for Consult Consult date: 04/25/23 Medical Management Requesting physician: Antione Hoyt - History of Present Illness History of Presenting Illness: Patient is a very pleasant 72-year-old male with a past medical history of hypertension, hyperlipidemia, [id number] diabetes mellitus type 2, GERD, and osteoarthritis. Patient is currently admitted under orthopedic surgery team status post left total knee arthroplasty secondary to severe left knee tricompartmental osteoarthrosis. We have been consulted for medical management throughout patient's hospitalization. Patient seen and evaluated in room 465 upon return from [facility]. Patient currently reports postoperative pain is controlled and he is just beginning to feel some mild discomfort at this time. He denies experiencing any postoperative nausea or vomiting, headache, lightheadedness, dizziness, chest pain, palpitations, shortness of breath, or any other complaints at this current time. Patient denies history of DVTs. Review of systems: Pertinent positives and negatives as discussed in HPI, a complete review of systems was performed and all other systems are negative. Physical exam: Vital signs reviewed and stable. General: Nontoxic, no distress and appears stated age. Derm: Skin warm and dry, normal coloration for ethnicity. Head: Atraumatic, normocephalic and symmetric. Eyes: EOMs intact, no lid lag, and anicteric sclera Mouth: no lip lesions, mucus membranes moist Cardiovascular: regular rate and rhythm with normal S1S2, no murmur, positive posterior tibial pulses bilaterally, and cap refill < 2 seconds. Lungs: Respirations even, regular, and unlabored on room air. Lungs CTA bilaterally, no rhonchi, no rales, no wheezing, and no accessory muscle usage. Abdominal: soft, nontender to palpation, no guarding, no appreciable organomegaly Ext: Movement and sensation intact.. No gross muscle atrophy, no edema, no contractures postoperative dressing clean, dry, and intact and ice packs in place to left knee. Neuro: Speech clear, face symmetrical and CN II-XII grossly intact with no noted focal neuro deficits Psych: Alert and oriented to person, place, time, and situation. Appropriate and pleasant affect. Assessment and Plan of Care: Osteoarthritis of left knee Status post left total knee Management per primary admitting orthopedic surgery team including DVT prophylaxis, pain management, wound/dressing changes, weightbearing, and PT/OT. Currently DVT prophylaxis with Xarelto. Order placed for postoperative labs including CBC and CMP. We'll follow up on these results and place additional orders as indicated based upon the findings. Diabetes mellitus with hyperglycemia Fasting blood glucose was 164. At this time we will hold oral antidiabetic medications and place patient on glycemic protocol with NovoLog sliding scale. We will obtain hemoglobin A1c with a.m. labs. Hypertension Vital signs reviewed and stable with blood pressure 118/73, heart rate 63, respiratory rate 16, temp 97.6F, and SpO2 of 96% on room air. Home medications reviewed and reordered. Patient to continue daily medication regimen with losartan 25 mg daily. Hyperlipidemia Patient to continue daily medication regimen with atorvastatin 20 mg nightly and aspirin 81 mg daily. GERD Continue PPI prophylaxis with Protonix 40 mg twice daily. Thank you for allowing us to participate in the care of this pleasant patient. Do not hesitate to contact us with questions. Someone can be reached from [facility] all hours of the day at [phone] or via [employer] Patient was seen independently by Nurse Practitioner. This document was prepared using [employer] dictation software. Please allow for errors in iap displays analyst while rare they do occur. Bernardo Brasher NP rendered care for this patient independently, reviewed the findings and plan as documented in the note above. I did not physically speak with or examine the patient on this date. Past Medical History Past Medical History: Diabetes Mellitus, GERD/Reflux, Hearing Disorder / Deafness, Hyperlipidemia, Hypertension, Osteoarthritis (OA) History of Any Multi-Drug Resistant Organisms: None Reported Past Surgical History: Back Surgery, Cholecystectomy, Joint Replacement, Orthopedic Surgery Additional Past Surgical History / Comment(s): neck surgery, right rotator cuff , mid back surgery, total right knee,left knee arthroscopic x2, pain clinic injections, total left knee 04/25/23. Past Anesthesia/Blood Transfusion Reactions: No Reported Reaction Past Psychological History: No Psychological Hx Reported Smoking Status: Never smoker Past Alcohol Use History: Rare Additional Past Alcohol Use History / Comment(s): chews tabacco -daily Past Drug Use History: None Reported - Past Family History Mother Family Medical History: No Reported History Medications and Allergies Home Medications Medication Instructions Recorded Confirmed Type Ascorbic Acid [Vitamin C] 1,000 mg PO DAILY 11/15/16 04/25/23 History Aspirin [Adult Low Dose Aspirin EC] 81 mg PO DAILY 11/15/16 04/25/23 History glipiZIDE [Glucotrol] 20 mg PO AC-BID 11/15/16 04/25/23 History metFORMIN HCL [Glucophage] 1,000 mg PO BID 11/15/16 04/25/23 History Alogliptin Benzoate [Alogliptin] 25 mg PO DAILY 03/23/20 04/25/23 History Omeprazole Magnesium [PriLOSEC OTC] 20 mg PO BID 03/23/20 04/25/23 History Carboxymethylcellulose Sodium 1 dropper BOTH EYES TID 04/25/23 04/25/23 History Empagliflozin [Jardiance] 25 mg PO DAILY 04/25/23 04/25/23 History HYDROcodone/APAP 5-325MG [[place] 1 tab PO Q4HR PRN 04/25/23 04/25/23 History 5-325] Insulin Glargine [Lantus Vial] 10 unit SQ HS 04/25/23 04/25/23 History Losartan [Cozaar] 25 mg PO DAILY 04/25/23 04/25/23 History Simvastatin [Zocor] 40 mg PO HS 04/25/23 04/25/23 History Apixaban [Eliquis] 2.5 mg PO BID #60 tab 04/26/23 Rx HYDROcodone/APAP 7.5-325MG [[place] 1 - 2 tab PO Q6HR PRN #36 tab 04/26/23 Rx 7.5-325] Sennosides/Docusate Sodium [Senna 1 each PO DAILY #20 capsule 04/26/23 Rx Plus 8.6-50 mg Softgel] hydrOXYzine pamoate [Vistaril] 25 mg PO Q8HR #30 capsule 04/26/23 Rx Allergies Allergy/AdvReac Type Severity Reaction Status Date / Time No Known Allergies Allergy Verified 04/25/23 08:44 Physical Exam Vitals: Vital Signs Temp Pulse Pulse Resp BP BP Pulse Ox 04/25/23 12:50 62 16 119/68 93 L 04/25/23 12:35 59 L 16 127/75 97 04/25/23 12:20 60 16 114/70 99 04/25/23 12:05 96.8 F L 67 14 120/70 98 04/25/23 10:00 67 16 97 04/25/23 09:05 98.5 F 74 16 152/82 95 Intake and Output 04/24/23 04/25/23 04/25/23 22:59 06:59 14:59 Intake Total 1801 Output Total 50 Balance 1751 Intake: IV 1801 Output: Estimated Blood Loss 50 Other: Weight 105 kg Results CBC & Chem 7: 04/26/23 05:45 04/26/23 05:45 Labs: Abnormal Lab Results - Last 24 Hours (Table) 04/25/23 04/25/23 Range/Units 09:06 09:08 Glucose 160 H (74-99) mg/dL POC Glucose (mg/dL) 151 H (70-110) mg/dL
[2023-04-25] MEDS ORDERED: DEXTROSE 50% SYRINGE 50 ML IVP PRN ×2 (14:18)
[2023-04-25 16:07] LABS: Glucose,Whole Blood 164 mg/dL (70-110)
[2023-04-25] MEDS: INSULIN ASPART (NovoLOG) 100 UNIT/ML VIAL SQ SCH ×2 (16:39→21:07)
[2023-04-25] MEDS: HYDROcodone/APAP 7.5-325MG 1 EACH TAB PO PRN (16:42)
[2023-04-25] MEDS: ARTIFICIAL TEARS-HYPROMELLOSE DROPS 15 ML BTL BOTH EYES SCH ×2 (16:47→20:02)
[2023-04-25 20:36] LABS: Glucose,Whole Blood 222 mg/dL (70-110)
[2023-04-25] MEDS ORDERED: ATORVASTATIN 20 MG TAB PO SCH (21:00)
[2023-04-25] MEDS ORDERED: SENNOSIDES-DOCUSATE SODIUM 1 EACH TAB PO SCH (21:00)
[2023-04-25] MEDS ORDERED: INSULIN DETEMIR (LEVEMIR) 100 UNIT/ML SYR SQ SCH (21:00)
[2023-04-25] MEDS: PANTOPRAZOLE 40 MG TABLET PO SCH (21:06)
[2023-04-26 06:14] LABS: Glucose,Whole Blood 126 mg/dL (70-110)
[2023-04-26] MEDS: INSULIN ASPART (NovoLOG) 100 UNIT/ML VIAL SQ SCH (06:31)
[2023-04-26 07:25] VITALS: BP 160/76; PULSE 92; RESP 15; TEMP 98.7
[2023-04-26] MEDS: HYDROcodone/APAP 7.5-325MG 1 EACH TAB PO PRN (07:55)
[2023-04-26] MEDS: PANTOPRAZOLE 40 MG TABLET PO SCH (07:57)
[2023-04-26] MEDS: ARTIFICIAL TEARS-HYPROMELLOSE DROPS 15 ML BTL BOTH EYES SCH (08:35)
[2023-04-26] MEDS ORDERED: RIVAROXABAN 10 MG TAB PO SCH (09:00)
[2023-04-26] MEDS ORDERED: LOSARTAN 25 MG TAB PO SCH (09:00)
[2023-04-26] MEDS ORDERED: ASCORBIC ACID 500 MG TAB PO SCH (09:00)
[2023-04-26] MEDS ORDERED: ASPIRIN 81 MG PO SCH (09:00)
--- NOTE | 2023-04-26 09:47 | P.DS ---
Providers Date of admission: 04/25/2023 Expected date of discharge: 04/26/23 Attending physician: Antione Hoyt Consults: 04/25/23 11:45 Consult Physician Routine Consulting Provider: Airam Wadsworth Consult Reason/Comments: Medical Management s/p left total knee arthroplasty Do you want consulting provider notified?: Yes Primary care physician: [facility] Hospital Course: Date of admission: 04/25/2023 Date of discharge: 04/26/2023 Admission diagnosis: Left knee osteoarthritis Discharge diagnosis: Same Attending physician: Dr. Hoyt Surgical procedures: Left total knee arthroplasty Brief history: Patient is a 72-year-old male with a history of progressive primary left knee osteoarthritis. At this point patient has failed conservative treatment measures and has opted to proceed with a elective left total knee arthroplasty. Hospital course: Details of patient's surgery can be found in operative report. Patient tolerated the procedure well and was subsequently transported to orthopedic floor. Patient's orthopeidc and medical care was provided daily. Patient had daily laboratory tests performed for evaluation of overall blood counts. Patient had daily physical therapy to include strengthening range of motion as well as education with walker ambulation. Patient was treated with Xarelto for their postoperative DVT prophylaxis during their inpatient stay. Patient was noted to have a relatively uneventful postoperative course. Patient reported satisfactory pain control with oral pain medications by postoperative day 1. Patient showed satisfactory progress with physical therapy. Patient moved steadily through the program and had no difficulty meeting the goals by postoperative day 1. Given patient's otherwise satisfactory course and having met physical therapy goals, plan is to discharge patient home with health services on postoperative day 1. Discharge condition/disposition: Patient will be discharged home with health services in stable condition. Discharge medications: Instructions are given on resumption of patient's normal daily medications per primary care recommendation, in addition patient will be prescribed [place] 7.5 mg/325 mg; Vistaril; senna; eliquis 2.5 mg BID x 2 weeks. Discharge instructions: 1. Wound care and infection precautions, keep incision dry and covered while showering, no lotions, creams, moisturizers. No soaking, tubs, pools, hottubs. Do not scrub over the incision. 2. Weight-bear as tolerated with walker / cane until follow-up. 3. Ice and elevate when necessary. Do not exceed 20 minutes per hour with ice pack. 4. Utilize compression sleeve until seen at first follow up appointment. 5. Visiting nursing care. 6. Home physical therapy including home CPM. 7. Pain meds and anticoagulants per prescription. 8. Pain medication has potential to cause constipation. Increase oral fluid and fiber intake. Contact primary care provider if you have not had a bowel movement within 48 hours after discharge 9. No anti-inflammatory medication until discussed at first post operative visit, this including Motrin, Aleve, Mobic, Diclofenac 10. Follow up in office at 2 weeks postop with William Guillen PA-C / Andrey Peacock PA-C 11. Follow up with your primary care doctor 7-10 days after discharge. 12. Contact [facility] with any questions, . Assessment: Left knee osteoarthritis Procedures: Left total knee arthroplasty Patient Condition at Discharge: Good Plan - Discharge Summary Discharge Rx Participant: Yes New Discharge Prescriptions: New hydrOXYzine pamoate [Vistaril] 25 mg PO Q8HR #30 capsule HYDROcodone/APAP 7.5-325MG [[place] 7.5-325] 1 - 2 tab PO Q6HR PRN #36 tab PRN Reason: Pain Apixaban [Eliquis] 2.5 mg PO BID #60 tab Sennosides/Docusate Sodium [Senna Plus 8.6-50 mg Softgel] 1 each PO DAILY #20 capsule No Action glipiZIDE [Glucotrol] 20 mg PO AC-BID Aspirin [Adult Low Dose Aspirin EC] 81 mg PO DAILY Ascorbic Acid [Vitamin C] 1,000 mg PO DAILY metFORMIN HCL [Glucophage] 1,000 mg PO BID Alogliptin Benzoate [Alogliptin] 25 mg PO DAILY Omeprazole Magnesium [PriLOSEC OTC] 20 mg PO BID HYDROcodone/APAP 5-325MG [[place] 5-325] 1 tab PO Q4HR PRN PRN Reason: Moderate Pain (Scale 4 To 6) Carboxymethylcellulose Sodium 1 dropper BOTH EYES TID Simvastatin [Zocor] 40 mg PO HS Losartan [Cozaar] 25 mg PO DAILY Insulin Glargine [Lantus Vial] 10 unit SQ HS Empagliflozin [Jardiance] 25 mg PO DAILY Discharge Medication List Ascorbic Acid [Vitamin C] 1,000 mg PO DAILY 11/15/16 [History] Aspirin [Adult Low Dose Aspirin EC] 81 mg PO DAILY 11/15/16 [History] glipiZIDE [Glucotrol] 20 mg PO AC-BID 11/15/16 [History] metFORMIN HCL [Glucophage] 1,000 mg PO BID 11/15/16 [History] Alogliptin Benzoate [Alogliptin] 25 mg PO DAILY 03/23/20 [History] Omeprazole Magnesium [PriLOSEC OTC] 20 mg PO BID 03/23/20 [History] Carboxymethylcellulose Sodium 1 dropper BOTH EYES TID 04/25/23 [History] Empagliflozin [Jardiance] 25 mg PO DAILY 04/25/23 [History] HYDROcodone/APAP 5-325MG [[place] 5-325] 1 tab PO Q4HR PRN 04/25/23 [History] Insulin Glargine [Lantus Vial] 10 unit SQ HS 04/25/23 [History] Losartan [Cozaar] 25 mg PO DAILY 04/25/23 [History] Simvastatin [Zocor] 40 mg PO HS 04/25/23 [History] Apixaban [Eliquis] 2.5 mg PO BID #60 tab 04/26/23 [Rx] HYDROcodone/APAP 7.5-325MG [[place] 7.5-325] 1 - 2 tab PO Q6HR PRN #36 tab 04/26/23 [Rx] Sennosides/Docusate Sodium [Senna Plus 8.6-50 mg Softgel] 1 each PO DAILY #20 capsule 04/26/23 [Rx] hydrOXYzine pamoate [Vistaril] 25 mg PO Q8HR #30 capsule 04/26/23 [Rx] Follow up Appointment(s)/Referral(s): Andrey Peacock, PHIL [PHYSICIAN BOX BUILDER] - 2 Weeks Patient Instructions/Handouts: Knee Replacement (DC) Activity/Diet/Wound Care/Special Instructions: Orthopedic Discharge Instructions: 1. Wound care and infection precautions, keep incision dry and covered while showering, no lotions, creams, moisturizers. No soaking, pools, hot tubs. Do not scrub over incision. 2. Weight-bear as tolerated with walker / cane until follow-up. 3. Ice and elevate when necessary. Do not exceed 20 minutes per hour with ice pack. 4. Utilize compression sleeve until seen at first follow up appointment. 5. Pain meds and anticoagulants per prescription. 6. Pain medication has potential to cause constipation. Increase oral fluid and fiber intake. Contact primary care provider if you have not had a bowel movement within 48 hours after discharge. 7. No anti-inflammatory medication until discussed at first post operative visit, this including Motrin, Aleve, Mobic, Diclofenac. 8. Follow up in office at 2 weeks postop with William Guillen PA-C / Andrey Peacock PA-C 9. Follow up with your primary care doctor 7-10 days after discharge. 10. Contact [facility] with any questions, . keep incision clean, dry, intact. While showering, cover fusion tape with Saran wrap. Keep fusion tape on until follow-up appointment in office at 2 weeks. Discharge Disposition: HOME WITH HOME HEALTH SERVICES
--- NOTE | 2023-04-26 09:51 | P.PN ---
Subjective Progress Note Date: 04/26/23 Principal diagnosis: Left knee osteoarthritis Patient was seen at bedside this morning had just finished working with physical therapy. Patient says he did walk around the room using a walker. Patient says he has urinated several times since surgery yesterday. Patient says she also has had a bowel movement. Patient says he is looking forward to going home today. Patient says he does have a walker for home. Patient rates his pain as 8/10 currently. Pain medication does help control his pain a little bit. Patient denies chest pain, fever, stress breath, nausea, oncology vision, loss of bowel/bladder control. Objective - Vital Signs Vital signs: Vital Signs Temp 98.7 F 04/26/23 07:24 Pulse 92 04/26/23 07:24 Resp 15 04/26/23 07:24 BP 160/76 04/26/23 07:24 Pulse Ox 95 04/26/23 08:05 FiO2 Intake & Output 04/25/23 04/26/23 04/26/23 18:59 06:59 18:59 Intake Total 1801 Output Total 50 600 Balance 1751 -600 Weight 105 kg Intake: IV 1801 Output: Urine 600 Estimated Blood Loss 50 Other: # Voids 2 # Bowel Movements 1 - Exam Left knee: Incision is clean, dry, and intact. The exofin fusion tape is in good condition. There is minimal soft tissue swelling and ecchymosis surrounding the medial and lateral aspects of the incision. Calf is soft, no tenderness with palpation. Plantar flexion, dorsiflexion, EHL, FHL are intact. Sensory exam to light touch throughout the extremity is intact, dorsal pedis pulses 2+. - Labs CBC & Chem 7: 04/25/23 09:08 04/25/23 09:08 Labs: Abnormal Lab Results - Last 24 Hours (Table) 04/25/23 04/25/23 04/25/23 Range/Units 09:08 16:05 20:35 Glucose 160 H (74-99) mg/dL POC Glucose (mg/dL) 164 H 222 H (70-110) mg/dL 04/26/23 Range/Units 06:13 Glucose (74-99) mg/dL POC Glucose (mg/dL) 126 H (70-110) mg/dL Assessment and Plan Assessment: Left knee osteoarthritis Postoperative day 1 status post left total knee arthroplasty Plan: 1. Left knee osteoarthritis - left total knee arthroplasty performed yesterday, 04/25/2023. Patient stable bedside this morning. Patient did do well with physical therapy this morning. Patient does have a walker at home. Discharge home today with health services 2. Appreciate medical management 3. Pain management - [place]; Vistaril 4. DVT prophylaxis - Xarelto in hospital. Going home with eliquis 2.5 mg BID x2 weeks 5. GI prophylaxis - senna 6. PT/OT - weightbearing as tolerated with walker 7. Encourage incentive spirometer use 8. Discharge planning - discharge home today with health services Time with Patient: Less than 30
[2023-04-26 10:09] LABS: Basophils # (A) 0.02 X 10*3/uL (0.00-0.10); Basophils % (A) 0.2 %; Eosinophils # (A) 0 X 10*3/uL (0.04-0.35); Eosinophils % (A) 0 %; HCT 40.9 % (39.6-50.0); HGB 13.4 d/dL (13.0-17.0); Lymphocytes # (A) 2.43 X 10*3/uL (0.90-5.00); Lymphocytes % (A) 20.2 %; MCHC 32.8 d/dL (32.0-37.0); MCV 94.7 FL (80.0-97.0); Mean Platelet Volume 11.4 FL (9.5-12.2); Monocytes # (A) 1.06 X 10*3/uL (0.20-1.00); Monocytes % (A) 8.8 %; NRBC Per 100 WBC 0 X 10*3/uL (0.00-0.01); Neutrophils # (A) 8.46 X 10*3/uL (1.80-7.70); Neutrophils % (A) 70.3 %; Platelet Count 330 X 10*3/uL (140-440); RBC 4.32 X 10*6/uL (4.40-5.60); RDW 12.9 % (11.5-14.5); WBC 12.03 X 10*3/uL (4.50-10.00)
--- NOTE | 2023-04-26 10:11 | P.PN ---
Subjective Progress Note Date: 04/26/23 History of Presenting Illness: Patient is a very pleasant 72-year-old male with a past medical history of hypertension, hyperlipidemia, [id number]-vbsigrizv diabetes mellitus type 2, G ERD, and osteoarthritis. Patient is currently admitted under orthopedic surgery team status post left total knee arthroplasty secondary to severe left knee tricompartmental osteoarthrosis. We have been consulted for medical management throughout patient's hospitalization. Physical exam: Patient seen and fully evaluated at bedside this morning. Patient sitting in wheelchair at bedside reports he is ready to go. Patient reports controlled postoperative pain and currently denies having any complaints or needs. Patient's son also at bedside. Vital signs reviewed and stable. General: Nontoxic, no distress and appears stated age. Derm: Skin warm and dry, normal coloration for ethnicity. Head: Atraumatic, normocephalic and symmetric. Eyes: EOMs intact, no lid lag, and anicteric sclera Mouth: no lip lesions, mucus membranes moist Cardiovascular: regular rate and rhythm with normal S1S2, no murmur, positive posterior tibial pulses bilaterally, and cap refill < 2 seconds. Lungs: Respirations even, regular, and unlabored on room air. Lungs CTA bilaterally, no rhonchi, no rales, no wheezing, and no accessory muscle usage. Abdominal: soft, nontender to palpation, no guarding, no appreciable organomegaly Ext: Movement and sensation intact.. No gross muscle atrophy, no edema, no contractures postoperative dressing clean, dry, and intact and ice packs in place to left knee. Neuro: Speech clear, face symmetrical and CN II-XII grossly intact with no noted focal neuro deficits Psych: Alert and oriented to person, place, time, and situation. Appropriate and pleasant affect. Assessment and Plan of Care: Osteoarthritis of left knee Status post left total knee Management per primary admitting orthopedic surgery team including DVT prophylaxis, pain management, wound/dressing changes, weightbearing, and PT/OT. Currently DVT prophylaxis with Xarelto. Diabetes mellitus with hyperglycemia Blood glucose levels ranging from 126-222 over the past 24 hours.. continue on glycemic protocol and NovoLog sliding scale throughout hospitalization. Patient to resume glipizide 20 mg twice daily, metformin 1000 mg twice daily, Alogliptan 25 mg daily, and Lantus 10 units daily upon discharge. Hypertension Vital signs reviewed with blood pressure 160/76, heart rate 92, respiratory rate 15, temp 98.7F, and SpO2 of 95% on room air. Patient to continue daily medication regimen with losartan 25 mg daily and no further recommendations at this time.. Hyperlipidemia Patient to continue daily medication regimen with atorvastatin 20 mg nightly and aspirin 81 mg daily. GERD Continue PPI prophylaxis with Protonix 40 mg twice daily. Data review: Morning labs reviewed. CBC showing mild leukocytosis with WBC count of 12.03 and stable postoperative hemoglobin of 13.4 with preoperative hemoglobin of 15.1. BMP was unremarkable. Vital signs reviewed with blood pressure 160/76, heart rate 92, respiratory rate 15, temp 98.7F, and SpO2 of 95% on room air. Medically, patient is stable for discharge once cleared by primary admitting orthopedic surgery team. Discharge Medication Reconciliation has been completed. Thank you for allowing us to participate in the care of this pleasant patient. Do not hesitate to contact us with questions. Someone can be reached from the [facility] all hours of the day at [phone] or via [employer]. Patient was seen independently by Nurse Practitioner. This document was prepared using copygram dictation software. Please allow for errors in systems consultant while rare they do occur. I reviewed the documentation as provided by the ZAYDA above, who is the original author of this note. I agree with the documented assessment and plan, with the following changes: none Objective - Vital Signs Vital signs: Vital Signs Temp 98.7 F 04/26/23 07:24 Pulse 92 04/26/23 07:24 Resp 15 04/26/23 07:24 BP 160/76 04/26/23 07:24 Pulse Ox 95 04/26/23 08:05 FiO2 Intake & Output 04/25/23 04/26/23 04/26/23 18:59 06:59 18:59 Intake Total 1801 Output Total 50 600 Balance 1751 -600 Weight 105 kg Intake: IV 1801 Output: Urine 600 Estimated Blood Loss 50 Other: # Voids 2 # Bowel Movements 1 - Labs CBC & Chem 7: 04/26/23 05:45 04/26/23 05:45 Labs: Abnormal Lab Results - Last 24 Hours (Table) 04/25/23 04/25/23 04/25/23 Range/Units 09:06 09:08 16:05 Glucose 160 H (74-99) mg/dL POC Glucose (mg/dL) 151 H 164 H (70-110) mg/dL 04/25/23 04/26/23 Range/Units 20:35 06:13 Glucose (74-99) mg/dL POC Glucose (mg/dL) 222 H 126 H (70-110) mg/dL
[2023-04-26 10:23] LABS: ALT 10 U/L (10-49); AST 15 U/L (14-35); Alkaline Phosphatase 74 U/L (41-126); BUN/Creat Ratio 20.33 Ratio (12.00-20.00); Blood Urea Nitrogen 18.3 mg/dL (9.0-27.0); Calcium 9.1 mg/dL (8.7-10.3); Carbon Dioxide 23.4 mmol/L (21.6-31.8); Chloride 105 mmol/L (96-109); Glucose 121 mg/dL (70-110); Magnesium 1.7 mg/dL (1.5-2.4); Potassium 4.2 mmol/L (3.5-5.5); Sodium 141 mmol/L (135-145); Total Bilirubin 0.5 mg/dL (0.3-1.2)
--- NOTE | 2023-04-26 11:47 | P.PN ---
Progress Note - Text Progress Note Date: 04/26/23 Postoperative day # 1 status post total knee arthroplasty, and adductor canal catheter placed for postoperative analgesia, currently at ropivacaine 0.2% 8 mL per hour and continuous infusion, visual analogue scale is 3/10, patient using oral pain medication for breakthrough pain. Assessment and plan= Acute postoperative pain, adductor canal catheter for pain control, pain is well controlled we'll continue the same management.
== END 2023-04-26 10:28 | disposition home health service (06) ==
LOC: OR 08:18 → 4SSUR 12:23 → OR 04-26 10:28
PROVIDERS: ATTEND Orthopaedic Surgery
DX: M17.12 Unilateral primary osteoarthritis, left knee (principal); G89.18 Other acute postprocedural pain; E11.9 Type 2 diabetes mellitus without complications; K21.9 Gastro-esophageal reflux disease without esophagitis; I10 Essential (primary) hypertension; E78.5 Hyperlipidemia, unspecified; Z90.49 Acquired absence of other specified parts of digestive tract; Z86.59 Personal history of other mental and behavioral disorders; Z79.82 Long term (current) use of aspirin; Z79.84 Long term (current) use of oral hypoglycemic drugs; Z79.52 Long term (current) use of systemic steroids; Z79.899 Other long term (current) drug therapy
CPT/HCPCS: 94760; 97161; 64999; 64448; 80053; 80048; 83735; 85025; 85027; 85610; 85730; 83036; 73560; 27130; C1713 ×2; C1776; C1751; J2250; J1100; J0690 ×3; J2405; J3010; J2795; J1170

== ENCOUNTER → 2023-06-13 | Outpatient (CLI) | payer OTHER ==
[2023-06-13 16:13] LABS: BUN/Creat Ratio 16.33 Ratio (12.00-20.00); Blood Urea Nitrogen 14.7 mg/dL (9.0-27.0); Carbon Dioxide 24.3 mmol/L (21.6-31.8); Chloride 102 mmol/L (96-109); Glucose 161 mg/dL (70-110); Potassium 4.7 mmol/L (3.5-5.5); Sodium 140 mmol/L (135-145)
[2023-06-13 21:08] LABS: Basophils # (A) 0.06 X 10*3/uL (0.00-0.10); Basophils % (A) 0.6 %; Eosinophils # (A) 0.04 X 10*3/uL (0.04-0.35); Eosinophils % (A) 0.4 %; HCT 46.4 % (39.6-50.0); HGB 14.8 d/dL (13.0-17.0); Lymphocytes # (A) 3.25 X 10*3/uL (0.90-5.00); Lymphocytes % (A) 31.1 %; MCH 30.7 pg (27.0-32.0); MCHC 31.9 d/dL (32.0-37.0); MCV 96.3 FL (80.0-97.0); Mean Platelet Volume 11.5 FL (9.5-12.2); Monocytes # (A) 0.65 X 10*3/uL (0.20-1.00); Monocytes % (A) 6.2 %; NRBC Per 100 WBC 0 X 10*3/uL (0.00-0.01); Neutrophils # (A) 6.41 X 10*3/uL (1.80-7.70); Neutrophils % (A) 61.3 %; Platelet Count 361 X 10*3/uL (140-440); RBC 4.82 X 10*6/uL (4.40-5.60); RDW 12.7 % (11.5-14.5); WBC 10.45 X 10*3/uL (4.50-10.00)
== END | disposition home or self-care (01) ==
LOC: LABWHC1 10:02
PROVIDERS: ATTEND Urology
DX: Z01.812 Encounter for preprocedural laboratory examination (principal); R97.20 Elevated prostate specific antigen [PSA]
CPT/HCPCS: 36415; 80048; 85025

== ENCOUNTER → 2023-07-31 | Outpatient (CLI) | payer OTHER ==
--- NOTE | 2023-07-31 13:54 | XR ---
EXAMINATION TYPE: XR chest 2V DATE OF EXAM: 07/31/2023 1:35 PM COMPARISON: Chest radiographs from 04/26/2011 TECHNIQUE: XR chest 2V Frontal and lateral views of the chest. CLINICAL INDICATION:Male, 72 years old with history of PRE SURG TESTING; FINDINGS: Lungs/Pleura: There is no evidence of pleural effusion, focal consolidation, or pneumothorax. Pulmonary vascularity: Unremarkable. Heart/mediastinum: Cardiomediastinal silhouette is unremarkable. Atherosclerotic calcifications are seen in the aorta. Musculoskeletal: No acute osseous pathology. Findings compatible with DISH. IMPRESSION: No acute cardiopulmonary disease/process.
[2023-08-01 02:46] LABS: Blood Urea Nitrogen 15.5 mg/dL (9.0-27.0); Calcium 10.6 mg/dL (8.7-10.3); Carbon Dioxide 26.5 mmol/L (21.6-31.8); Chloride 101 mmol/L (96-109); Glucose 149 mg/dL (70-110); Potassium 5.7 mmol/L (3.5-5.5); Sodium 141 mmol/L (135-145)
[2023-08-01 04:02] LABS: Appearance,Urine Clear (Clear); Bilirubin,Urine Negative (Negative); Blood,Urine Negative (Negative); Color,Urine Yellow (Yellow); Ketones,Urine 15 (Negative); Nitrite,Urine Negative (Negative); PH, Urine 5.5; Specific Gravity,Urine >1.035 (1.001-1.030)
[2023-08-01 04:40] LABS: Basophils # (A) 0.06 X 10*3/uL (0.00-0.10); Basophils % (A) 0.5 %; Eosinophils # (A) 0.28 X 10*3/uL (0.04-0.35); Eosinophils % (A) 2.4 %; HGB 16.6 d/dL (13.0-17.0); Lymphocytes # (A) 2.91 X 10*3/uL (0.90-5.00); Lymphocytes % (A) 25.4 %; MCH 30.2 pg (27.0-32.0); MCHC 31.3 d/dL (32.0-37.0); MCV 96.5 FL (80.0-97.0); Mean Platelet Volume 12.1 FL (9.5-12.2); Monocytes # (A) 0.64 X 10*3/uL (0.20-1.00); Monocytes % (A) 5.6 %; NRBC Per 100 WBC 0 X 10*3/uL (0.00-0.01); Neutrophils # (A) 7.51 X 10*3/uL (1.80-7.70); Neutrophils % (A) 65.8 %; Platelet Count 393 X 10*3/uL (140-440); RBC 5.49 X 10*6/uL (4.40-5.60); RDW 13.2 % (11.5-14.5); WBC 11.44 X 10*3/uL (4.50-10.00)
== END | disposition home or self-care (01) ==
LOC: LABPAT 13:07
PROVIDERS: ATTEND Urology
DX: Z01.818 Encounter for other preprocedural examination (principal); C61 Malignant neoplasm of prostate
CPT/HCPCS: 71046; 80048; 81003; 85025; 86850; 86900; 86901; 87086

== ENCOUNTER → 2023-08-04 | Outpatient (CLI) | payer OTHER ==
[2023-08-04 21:59] LABS: Blood Urea Nitrogen 18.4 mg/dL (9.0-27.0); Calcium 10.7 mg/dL (8.7-10.3); Carbon Dioxide 27.4 mmol/L (21.6-31.8); Chloride 102 mmol/L (96-109); Glucose 120 mg/dL (70-110); Sodium 142 mmol/L (135-145)
== END | disposition home or self-care (01) ==
LOC: LABWHC1 10:31
PROVIDERS: ATTEND Urology
DX: C61 Malignant neoplasm of prostate (principal)
CPT/HCPCS: 36415; 80048

== ENCOUNTER → 2023-08-06 | Outpatient (CLI) | payer OTHER ==
[2023-08-06 20:41] LABS: Basophils # (A) 0.06 X 10*3/uL (0.00-0.10); Basophils % (A) 0.5 %; Eosinophils # (A) 0.32 X 10*3/uL (0.04-0.35); Eosinophils % (A) 2.5 %; HCT 51.5 % (39.6-50.0); HGB 16.9 g/dL (13.0-17.0); Lymphocytes # (A) 3.18 X 10*3/uL (0.90-5.00); Lymphocytes % (A) 25.1 %; MCH 30.7 pg (27.0-32.0); MCHC 32.8 g/dL (32.0-37.0); MCV 93.6 FL (80.0-97.0); Mean Platelet Volume 12.1 FL (9.5-12.2); Monocytes # (A) 0.66 X 10*3/uL (0.20-1.00); Monocytes % (A) 5.2 %; NRBC Per 100 WBC 0.02 X 10*3/uL (0.00-0.01); Neutrophils % (A) 66.2 %; Platelet Count 311 X 10*3/uL (140-440); RBC Morphology Normal (Normal); RDW 13.2 % (11.5-14.5); WBC 12.68 X 10*3/uL (4.50-10.00)
[2023-08-07 02:07] LABS: Calcium 10.3 mg/dL (8.7-10.3); Chloride 102 mmol/L (96-109); Glucose 185 mg/dL (70-110); Potassium 5.2 mmol/L (3.5-5.5); Sodium 142 mmol/L (135-145)
== END | disposition home or self-care (01) ==
LOC: LABPAT 14:52
PROVIDERS: ATTEND Urology
DX: Z01.812 Encounter for preprocedural laboratory examination (principal); C61 Malignant neoplasm of prostate
CPT/HCPCS: 80048; 85025

== ENCOUNTER 2023-08-07 10:13 | Observation (INO) | payer OTHER ==
--- NOTE | 2023-07-31 13:00 | P.HPIHPCON ---
History of Present Illness H&P Date: 07/31/23 Chief Complaint: Prostate cancer This is a 72-year-old male with history of high-volume Ewa 8 prostate cancer. . Option of a robotic radical prostatectomy versus radiation therapy was discussed with him in detail. Risk and benefit of each approach was discussed. He agreed to proceed with a robotic radical prostatectomy, Aware of the risk which includes but not limited to bleeding, infection, injury to nearby organs. Discussed also risks of urinary incontinence and erectile dysfunction. Discussed also risk of cancer recurrence, potential need for additional treatment and need for postoperative surveillance. Discussed with him he is at higher risk of needing adjuvant treatment given the high volume of his cancer. Risk of anesthesia was also discussed. He understood all the risk and agreed to proceed with a robotic radical prostatectomy with pelvic lymph node dissection Consent for Procedure: I have explained the operation/procedure to the patient, including the risks, benefits, side effects, alternative therapies (including not receiving the proposed treatment or service), the likelihood of the patient achieving his/her goals, and potential recuperation problems for the procedure/sedation/analgesia, as well as any blood products, if indicated. I also explained to the patient the risks, benefits and side effects of the alternatives, as well as the risks related to not receiving the proposed procedure, care, treatment, or services. Past Medical History Past Medical History: Diabetes Mellitus, GERD/Reflux, Hearing Disorder / Deafness, Hyperlipidemia, Hypertension, Osteoarthritis (OA) History of Any Multi-Drug Resistant Organisms: None Reported Past Surgical History: Back Surgery, Cholecystectomy, Joint Replacement, Orthopedic Surgery Additional Past Surgical History / Comment(s): neck surgery, right rotator cuff , mid back surgery, total right knee,left knee arthroscopic x2, pain clinic injections, total left knee 04/25/23. Past Anesthesia/Blood Transfusion Reactions: No Reported Reaction Past Psychological History: No Psychological Hx Reported Smoking Status: Never smoker Past Alcohol Use History: Rare Additional Past Alcohol Use History / Comment(s): chews tabacco -daily Past Drug Use History: None Reported - Past Family History Mother Family Medical History: No Reported History Medications and Allergies Home Medications Medication Instructions Recorded Confirmed Type Ascorbic Acid [Vitamin C] 500 mg PO DAILY 11/15/16 06/17/23 History Aspirin [Adult Low Dose Aspirin EC] 81 mg PO DAILY 11/15/16 06/17/23 History glipiZIDE [Glucotrol] 20 mg PO AC-BID 11/15/16 06/17/23 History metFORMIN HCL [Glucophage] 500 mg PO BID 11/15/16 06/17/23 History Alogliptin Benzoate [Alogliptin] 25 mg PO DAILY 03/23/20 06/17/23 History Omeprazole Magnesium [PriLOSEC OTC] 20 mg PO BID 03/23/20 06/17/23 History Carboxymethylcellulose Sodium 1 dropper BOTH EYES TID 04/25/23 06/17/23 History Empagliflozin [Jardiance] 25 mg PO DAILY 04/25/23 06/17/23 History HYDROcodone/APAP 5-325MG [[place] 1 tab PO Q4HR PRN 04/25/23 06/17/23 History 5-325] Insulin Glargine [Lantus Vial] 10 unit SQ HS 04/25/23 06/17/23 History Losartan [Cozaar] 25 mg PO DAILY 04/25/23 06/17/23 History Simvastatin [Zocor] 40 mg PO HS 04/25/23 06/17/23 History Cyclobenzaprine [Flexeril] 10 mg PO HS 06/16/23 06/17/23 History Metoprolol Succinate [Metoprolol 25 mg PO DAILY 06/16/23 06/17/23 History Succinate ER] Allergies Allergy/AdvReac Type Severity Reaction Status Date / Time No Known Allergies Allergy Verified 06/17/23 14:07 Surgical - Exam - General no distress, no pain - Eyes normal ocular movement, no pale - ENT normal nares, normal mucosa - Respiratory normal expansion, normal respiratory effort - Abdomen Abdomen: soft, non tender - Psychiatric oriented to time, oriented to person, oriented to place Assessment and Plan Assessment: OR for robotic radical prostatectomy with pelvic lymph node dissection
[2023-08-04 09:46] VITALS: BMI 31.5
[~2023-08-07 10:13] MED LIST changes: -ACETAMINOPHEN TAB 500 MG TAB PO PRN; +DEXAMETHASONE SOD PHOSPHATE 4 MG/ML 1 ML VIAL IV ONE; +HYDROmorphone 0.5 MG/0.5 ML SYRINGE IVP PRN; -MELOXICAM 7.5 MG TAB PO PRN; +ONDANSETRON 4 MG/2 ML VIAL IVP ONE; -TRANEXAMIC 1,000 MG/100ML-NACL 1,000 MG in SALINE 1 100ML.BAG IVPB PRN
[2023-08-07] MEDS ORDERED: LACTATED RINGERS 1,000 ML IV ONE (10:39)
[2023-08-07 10:43] LABS: Glucose,Whole Blood 152 mg/dL (70-110)
[2023-08-07] MEDS: LACTATED RINGERS 1,000 ML IV SCH ×3 (11:06→18:00)
[2023-08-07 11:08] VITALS: RESP 18
[2023-08-07 11:20] LABS: African American GFR (CKD) >90 (>60 ml/min/1.73 sqM); Anion Gap 13 mmol/L; Blood Urea Nitrogen 17 mg/dL (9-20); Calcium 9.9 mg/dL (8.4-10.2); Carbon Dioxide 27 mmol/L (22-30); Chloride 102 mmol/L (98-107); Glucose 170 mg/dL (74-99); Non-African American GFR(CKD) 85 (>60 ml/min/1.73 sqM); Potassium 4.2 mmol/L (3.5-5.1); Sodium 142 mmol/L (137-145)
[2023-08-07] MEDS ORDERED: MIDAZOLAM 2 MG/2 ML VIAL IVP ONE (11:21)
--- NOTE | 2023-08-07 11:39 | P.ANPRN ---
Procedure Note - Anesthesia - Nerve Block Performed Bilateral Transversus Abdominis Single Date of Procedure: 08/07/23 Procedure Start Time: 11:20 Procedure Stop Time: :28 Indication: Acute Post-Operative Pain, Analgesia, Requested by Surgeon Sedation Type: Sedate with meaningful contact maintained Preparation: Sterile Prep Position: Supine Needle Types: Pajunk Needle Gauge: 21 Ultrasound used to visualize needle placement: Yes Ultrasound used to observe medication spread: Yes Injectate: 0.5% Ropivacaine (see comment for volume) Blood Aspirated: No Pain Paresthesia on Injection Noted: No Resistance on Injection: Normal Image Stored and Saved: Yes Events: Uneventful and Well Tolerated (Ropivacaine 0.5% 15 mls on each side)
[2023-08-07] MEDS ORDERED: ROPIVACAINE 5 MG/ML 30 ML VIAL ONE (11:48)
[2023-08-07] MEDS ORDERED: DEXAMETHASONE SOD PHOSPHATE 4 MG/ML 1 ML VIAL ONE (11:48)
[2023-08-07] MEDS ORDERED: PROPOFOL 10 MG/ML 20 ML VIAL IV ONE (11:48)
[2023-08-07] MEDS ORDERED: ePHEDrine 50 MG/ML 1 ML VIAL ONE (11:48)
[2023-08-07] MEDS ORDERED: ROCURONIUM 10 MG/ML (5 ML VIAL) IV ONE (11:48)
[2023-08-07] MEDS ORDERED: NEOSTIGMINE 1 MG/ML 10 ML VIAL ONE (11:48)
[2023-08-07] MEDS ORDERED: fentaNYL (PF) 50 MCG/ML 2 ML AMP ONE (11:48)
[2023-08-07] MEDS ORDERED: LIDOCAINE 1%-EPI 1:100,000 20 ML VIAL ONE (11:48)
[2023-08-07] MEDS ORDERED: LIDOCAINE 1% INJ 10MG/ML (20 ML MDV) ONE (11:48)
[2023-08-07] MEDS ORDERED: SUCCINYLCHOLINE CHLORIDE 200 MG/10 ML VIAL IV ONE (11:48)
[2023-08-07] MEDS ORDERED: GLYCOPYRROLATE 0.2 MG/ML 2 ML VIAL ONE (11:48)
[2023-08-07] MEDS ORDERED: SODIUM CHLORIDE 0.9% (PF) 10 ML VIAL ONE (11:48)
[2023-08-07] MEDS ORDERED: BUPIVACAINE (PF) 0.5% 30 ML VIAL SQ ONE ×2 (11:53)
[2023-08-07] MEDS ORDERED: ONDANSETRON 4 MG/2 ML VIAL IVP PRN (12:10)
--- NOTE | 2023-08-07 15:57 | P.OP ---
Date of Procedure: 08/07/23 Preoperative Diagnosis: Prostate cancer Postoperative Diagnosis: Same Procedure(s) Performed: Robotic-assisted laparoscopic radical prostatectomy with bilateral pelvic lymph node dissections Implants: None Anesthesia: PASHAA Surgeon: Bhavesh Lake Estimated Blood Loss (ml): 150 Pathology: other (Prostate, bilateral seminal vesicle, bilateral pelvic lymph nodes) Condition: stable Disposition: PACU Indications for Procedure: This is a 72-year-old male with history of high-volume Ewa 8 prostate cancer. . Option of a robotic radical prostatectomy versus radiation therapy was discussed with him in detail. Risk and benefit of each approach was dis cussed. He agreed to proceed with a robotic radical prostatectomy, Aware of the risk which includes but not limited to bleeding, infection, injury to nearby organs. Discussed also risks of urinary incontinence and erectile dysfunction. Discussed also risk of cancer recurrence, potential need for additional treatment and need for postoperative surveillance. Discussed with him he is at higher risk of needing adjuvant treatment given the high volume of his cancer. Risk of anesthesia was also discussed. He understood all the risk and agreed to proceed with a robotic radical prostatectomy with pelvic lymph node dissection Description of Procedure: After preoperative antibiotics were started, the patient was taken to the operating room. Anesthesia was induced and the patient was placed in a supine position , with adequate padding of the pressure points, shoulders, back, legs and arms. He was then prepped and draped in the standard fashion. A critical pa use was performed using two patient identifiers. A 16F berrios catheter was placed to gravity drainage. A pneumo-peritoneum was created with placement of a Veress needle to 20 mm Hg without complication, and a 8 Fr trocar was placed above the umbillicus. Under direct vision a 8mm robotic ports was placed lateral to each rectus slightly below the camera port. The left iliac fossa 8mm port was placed. The right child welfare assistant right iliac fossa 12mm port and right paramedian 5mm portwere placed. After the patient was placed in the trendelenberg position, the robot was then docked to the 8mm robotic ports and then each robotic arm and tower was checked in relation to the patient's legs and hands to avoid inadvertent compression. The peritoneal cavity was inspected. An inverted U-shaped incision began laterally to the left medial umbilical ligament and extended high across the midline to the right umbilical ligament. The limbs of the "U" extended to the level of the vasa on both sides. We next developed the preperitoneal space and the space of Retzius. Cautery was used to dissected the bladder away from the prostate. After the anterior bladder neck was incised and the bladder entered the the posterior bladder neck was exposed and the ureteral orifces identified. The posterior bladder neck was then incised and dissected away from the prostate. The vas and the seminal vesicles were now exposed and dissected to their insertions into the prostate and were not spared. The posterior layer of the Denonvillier's fascia was incised to enter morgan the plane between prostate and perirectal fat. Each lateral pedicle was controlled with clips and cautery for hemostasis. No nerve preservation was performed.. The puboprostatic ligament was incised where it inserted into the apex of the prostate and a plane between urethra and dorsal venous complex developed to expose the anterior urethral surface. The anterior wall of the urethra was transected with the cut setting a few millimeters distal to the apex of the prostate. The dorsal vein was ligated using 3-0 V lock bilateral obturator and external iliac lymph node packets were carefully dissected after careful visualization of the hypogastric artery and obturator nerve. There was careful attention paid to hemostasis with judicious use of cautery. Of note patient had very limited lymphatic tissue The urethrovesical anastomosis was performed . the posterior denovillers was reapproximated using 3-0 V lock. A 6 and 6 inch 3-0 V-Lock suture was used to anastomose the urethra and bladder, starting at the 6:00 posterior position. Mucosa was secured in every stitch, to ensure a mucosa to mucosa anastomosis. The stitch was regularly cinched and the anastomosis tightened. Care was taken to not violate the ureteral orifices. The Berrios catheter was advanced, the bladder filled, and the anastomosis was tested, as described above. Anastomsis was watertight at 200 mL The periumbilical fascia was closed with 1-0-PDS suture in running fashion. All ports were closed with a subcuticular 4-0 monocryl and Dermabond. Sponge, instrument, and needle counts were correct at the end of the case x2. All specimens including prostate and lymph nodes were sent to pathology for diagnosis and will be available in a week. The patient tolerated the surgery well and without complication. He awoke without difficulty and was taken to the recovery room in stable condition
[2023-08-07] MEDS: KETOROLAC 15 MG/ML 1 ML VIAL IVP SCH ×2 (16:38→23:36)
[2023-08-07 16:45] LABS: Glucose,Whole Blood 225 mg/dL (70-110)
[2023-08-07] MEDS ORDERED: INSULIN ASPART (NovoLOG) 100 UNIT/ML VIAL SQ ONE (16:57)
[2023-08-07] MEDS: SODIUM CHLORIDE 0.9% 1,000 ML IV SCH (18:00)
[2023-08-07] MEDS: PANTOPRAZOLE 40 MG TABLET PO SCH (18:05)
[2023-08-07] MEDS: HYDROmorphone 1 MG/ML 1 ML SYRINGE IVP PRN ×2 (18:05→21:13)
[2023-08-07] MEDS: metFORMIN 500 MG TAB PO SCH (18:05)
[2023-08-07] MEDS ORDERED: INSULIN DETEMIR (LEVEMIR) 100 UNIT/ML SYR SQ SCH (21:00)
[2023-08-07] MEDS ORDERED: CYCLOBENZAPRINE 10 MG TAB PO SCH (21:00)
[2023-08-07] MEDS ORDERED: ATORVASTATIN 20 MG TAB PO SCH (21:00)
[2023-08-08] MEDS: SODIUM CHLORIDE 0.9% 1,000 ML IV SCH (00:40)
[2023-08-08 05:51] LABS: Glucose,Whole Blood 122 mg/dL (70-110)
[2023-08-08] MEDS: KETOROLAC 15 MG/ML 1 ML VIAL IVP SCH (06:39)
[2023-08-08] MEDS: PANTOPRAZOLE 40 MG TABLET PO SCH (06:40)
[2023-08-08] MEDS: metFORMIN 500 MG TAB PO SCH (06:40)
--- NOTE | 2023-08-08 08:16 | P.DS ---
Providers Expected date of discharge: 08/08/23 Attending physician: Bhavesh Lake MD Primary care physician: [facility] Hospital Course: On the day of admission, the patient underwent an uncomplicated RALP with pelvic lymphadenectomy. The perioperative course was unremarkable. The patient remained afebrile with stable vital signs. On the first postoperative day, he denied nausea, chest pain, and dyspnea. He reported minimal discomfort, and was tolerating breakfast. On examination, the abdomen was soft and non-distended. Incisions were clean and dry. The Willson catheter was draining faintly blood- tinged urine. Procedures: Robotic-assisted laparoscopic prostatectomy (RALP) with bilateral pelvic lymphadenectomy in 08/17/2023 Patient Condition at Discharge: Good Plan - Discharge Summary Discharge Rx Participant: Yes New Discharge Prescriptions: New Ciprofloxacin HCl [Cipro] 250 mg PO Q12HR #6 tablet Ketorolac [Toradol] 10 mg PO Q6HR PRN #10 tab PRN Reason: Pain No Action Aspirin [Adult Low Dose Aspirin EC] 81 mg PO DAILY metFORMIN HCL [Glucophage] 500 mg PO BID Alogliptin Benzoate [Alogliptin] 25 mg PO DAILY Omeprazole Magnesium [PriLOSEC OTC] 20 mg PO BID Carboxymethylcellulose Sodium 1 dropper BOTH EYES TID Metoprolol Succinate [Metoprolol Succinate ER] 25 mg PO DAILY Simvastatin [Zocor] 40 mg PO HS Losartan [Cozaar] 25 mg PO DAILY Insulin Glargine [Lantus Vial] 10 unit SQ HS Empagliflozin [Jardiance] 25 mg PO DAILY Cyclobenzaprine [Flexeril] 10 mg PO HS Discharge Medication List Aspirin [Adult Low Dose Aspirin EC] 81 mg PO DAILY 11/15/16 [History] metFORMIN HCL [Glucophage] 500 mg PO BID 11/15/16 [History] Alogliptin Benzoate [Alogliptin] 25 mg PO DAILY 03/23/20 [History] Omeprazole Magnesium [PriLOSEC OTC] 20 mg PO BID 03/23/20 [History] Carboxymethylcellulose Sodium 1 dropper BOTH EYES TID 04/25/23 [History] Empagliflozin [Jardiance] 25 mg PO DAILY 04/25/23 [History] Insulin Glargine [Lantus Vial] 10 unit SQ HS 04/25/23 [History] Losartan [Cozaar] 25 mg PO DAILY 04/25/23 [History] Simvastatin [Zocor] 40 mg PO HS 04/25/23 [History] Cyclobenzaprine [Flexeril] 10 mg PO HS 06/16/23 [History] Metoprolol Succinate [Metoprolol Succinate ER] 25 mg PO DAILY 06/16/23 [History] Ciprofloxacin HCl [Cipro] 250 mg PO Q12HR #6 tablet 08/08/23 [Rx] Ketorolac [Toradol] 10 mg PO Q6HR PRN #10 tab 08/08/23 [Rx] Follow up Appointment(s)/Referral(s): Bhavesh Lake MD [STAFF PHYSICIAN] - 10 Days Activity/Diet/Wound Care/Special Instructions: Discharge home with Willson catheter. Instruct patient to use overnight drainage bag as well as urinary leg bag. Okay to shower. Diet as tolerated. No lifting, driving, or strenuous activity. Reassure patient that abdominal wall ecchymosis and penoscrotal swelling are normal. Instruct patient to begin taking antibiotics one day prior to Willson catheter removal. Discharge Disposition: HOME SELF-CARE
[2023-08-08 08:24] VITALS: BP 124/72; PULSE 93; TEMP 98.3
[2023-08-08] MEDS ORDERED: METOPROLOL SUCCINATE (ER) 25 MG TAB.ER.24H PO SCH (09:00)
[2023-08-08] MEDS ORDERED: DAPAGLIFLOZIN PROPANEDIOL 10 MG TABLET PO SCH (09:00)
[2023-08-08] MEDS ORDERED: LOSARTAN 25 MG TAB PO SCH (09:00)
[2023-08-08] MEDS ORDERED: LINAGLIPTIN 5 MG TABLET PO SCH (09:00)
== END 2023-08-08 10:46 | disposition home or self-care (01) ==
LOC: OR 10:13 → 4SSUR 12:10
PROVIDERS: ADMIT Urology; ATTEND Urology
DX: C61 Malignant neoplasm of prostate (principal); G89.18 Other acute postprocedural pain; E11.9 Type 2 diabetes mellitus without complications; K21.9 Gastro-esophageal reflux disease without esophagitis; E78.5 Hyperlipidemia, unspecified; I10 Essential (primary) hypertension; F17.220 Nicotine dependence, chewing tobacco, uncomplicated; Z79.82 Long term (current) use of aspirin; Z79.84 Long term (current) use of oral hypoglycemic drugs; Z79.4 Long term (current) use of insulin; Z79.899 Other long term (current) drug therapy
CPT/HCPCS: 96376 ×2; 96372; 96374; 96375; 64488; 80048; 88307; 88309; 88302; 55866; 38571; G0378 ×2; J2250; J0330; J1100; J2710; J0690; J2405; J2001; J3010; J1170; J2795; J1885 ×2; J2704; J0665

== ENCOUNTER → 2024-07-09 | Outpatient (CLI) | payer OTHER ==
--- NOTE | 2024-07-10 14:48 | PE ---
EXAMINATION TYPE: PET CT fusion skull to thigh DATE OF EXAM: 07/09/2024 COMPARISON: No recent pertinent CT Prior PET/CT: 07/11/2023 HISTORY: Prostate cancer TECHNIQUE: Following the intravenous administration of 5.64 mCi of gallium 28 PSMA, whole body image s are performed from the skull base to the midthigh. Images are reviewed on the computer in the sophia nal, axial, and sagittal planes. Reconstructed rotating images are created on independent workstatio n and reviewed on the computer. A localization and attenuation correction CT is performed in conjun ction with the PET scan. DLP: 983.7 mGycm SCAN: Subsequent FINDINGS: NECK: There is normal radiotracer distribution through the salivary glands. No suspicious uptake THORAX: No abnormal uptake ABDOMEN: No abnormal uptake PELVIS: No suspicious uptake within the intraperitoneal region. Prostate is not identified. Correlate with surgical history OSSEOUS STRUCTURES: There is a 1.7 cm focus of radiotracer within the S3-4 region of the sacrum, SUV 17, Image 213. Solitary metastasis may be present. This is new from comparison. LOCALIZATION CT: Lesion within the sacrum appears to be sclerotic and some central hypodensity. No ad ditional suspicious osseous metastasis radiographically apparent COMPARISON: Findings the sacrum is new. IMPRESSION: 1. Appears to be a solitary focus of radiotracer within the sacrum. This is new from comparison. [place] static lesion should be considered. [facility], Workstation: [facility], 07/10/2024 2:45 PM
== END | disposition home or self-care (01) ==
LOC: RADPETMAIN 14:28
PROVIDERS: ATTEND Urology
DX: C61 Malignant neoplasm of prostate (principal)
CPT/HCPCS: 78815

== ENCOUNTER → 2024-07-26 | Outpatient (CLI) | payer OTHER ==
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
== END | disposition home or self-care (01) ==
LOC: RADMRIMAIN 05:55
PROVIDERS: ATTEND Radiology Radiation Oncology
DX: C61 Malignant neoplasm of prostate (principal)
CPT/HCPCS: 72197

== ENCOUNTER 2024-09-03 09:51 | Emergency (ER) | payer OTHER, MEDICARE ==
[2024-09-03 10:01] VITALS: RESP 18
--- NOTE | 2024-09-03 10:02 | ED ---
Wound/Laceration HPI - General Chief Complaint: Wound/Laceration Stated Complaint: R hand lac Time Seen by Provider: 09/03/24 10:02 Source: patient, RN notes reviewed Mode of arrival: ambulatory Limitations: no limitations - History of Present Illness Initial Comments: This is a 73-year-old male presenting to the emergency department chief complaint of a injury to his right hand, distal third and fourth digit, that occurred yesterday evening. Patient states that he was using a new tomato slicer when he accidentally injured his distal third and fourth digits. He wrapped the fingers with Coban yesterday evening hours states when he woke up this morning there was still bleeding to the third digit. Patient denies other injuries at the time of the event. Unaware when his last tetanus vaccination was. Denies current blood thinner use. Denies paresthesias. No other acute complaints at this time. - Related Data Home Medications Medication Instructions Recorded Confirmed Aspirin [Adult Low Dose Aspirin EC] 81 mg PO DAILY 11/15/16 08/04/23 metFORMIN HCL [Glucophage] 500 mg PO BID 11/15/16 08/07/23 Alogliptin Benzoate [Alogliptin] 25 mg PO DAILY 03/23/20 08/04/23 Omeprazole Magnesium [PriLOSEC OTC] 20 mg PO BID 03/23/20 08/07/23 Carboxymethylcellulose Sodium 1 dropper BOTH EYES TID 04/25/23 08/04/23 Empagliflozin [Jardiance] 25 mg PO DAILY 04/25/23 08/07/23 Insulin Glargine [Lantus Vial] 10 unit SQ HS 04/25/23 08/07/23 Losartan [Cozaar] 25 mg PO DAILY 04/25/23 08/07/23 Simvastatin [Zocor] 40 mg PO HS 04/25/23 08/07/23 Cyclobenzaprine [Flexeril] 10 mg PO HS 06/16/23 08/07/23 Metoprolol Succinate [Metoprolol 25 mg PO DAILY 06/16/23 08/07/23 Succinate ER] Previous Rx's Medication Instructions Recorded Ciprofloxacin HCl [Cipro] 250 mg PO Q12HR #6 tablet 08/08/23 Ketorolac [Toradol] 10 mg PO Q6HR PRN #10 tab 08/08/23 Allergies Allergy/AdvReac Type Severity Reaction Status Date / Time No Known Allergies Allergy Verified 09/03/24 09:55 Review of Systems ROS Statement: Those systems with pertinent positive or pertinent negative responses have been documented in the HPI. ROS Other: All systems not noted in ROS Statement are negative. Past Medical History Past Medical History: Cancer, Diabetes Mellitus, GERD/Reflux, Hearing Disorder / Deafness, Hyperlipidemia, Hypertension, Osteoarthritis (OA), Prostate Disorder Additional Past Medical History / Comment(s): prostate cancer, hx of concussion in [place] with hearing loss-wears hearing aids, exposure to Agent [place]., back pain. History of Any Multi-Drug Resistant Organisms: None Reported Past Surgical History: Back Surgery, Cholecystectomy, Joint Replacement, Orthopedic Surgery Additional Past Surgical History / Comment(s): neck surgery, right rotator cuff , mid back surgery, total right knee,left knee arthroscopic x2, pain clinic injections, total left knee 04/25/23. Past Anesthesia/Blood Transfusion Reactions: No Reported Reaction Past Psychological History: No Psychological Hx Reported Smoking Status: Never smoker Past Alcohol Use History: Rare Past Drug Use History: None Reported - Past Family History Mother Family Medical History: No Reported History General Exam Limitations: no limitations General appearance: alert, in no apparent distress Eye exam: Present: normal appearance, PERRL, EOMI. Absent: scleral icterus, c onjunctival injection, periorbital swelling ENT exam: Present: normal exam, mucous membranes moist Neck exam: Present: normal inspection. Absent: tenderness, meningismus, lymphadenopathy Respiratory exam: Present: normal lung sounds bilaterally. Absent: respiratory distress, wheezes, rales, rhonchi, stridor Cardiovascular Exam: Present: regular rate, normal rhythm, normal heart sounds. Absent: systolic murmur, diastolic murmur, rubs, gallop, clicks GI/Abdominal exam: Present: soft, normal bowel sounds. Absent: distended, tenderness, guarding, rebound, rigid Right Hand Wrist exam: Present: deformity (distal third digit skin avulsion with active bleeding, capillary refill intact, sensation intact) Neuro motor exam: Present: wrist extension intact, thumb opposition intact, thumb IP flexion intact, thumb adduction intact Vascular: Present: normal capillary refill, radial pulse (2+). Absent: vascular compromise Back exam: Present: normal inspection Course Vital Signs 09/03/24 09/03/24 09:56 10:48 Temperature 97.9 F 98.1 F Pulse Rate 105 H 97 Respiratory 18 18 Rate Blood Pressure 141/84 136/79 O2 Sat by Pulse 95 96 Oximetry Medical Decision Making - Medical Decision Making Was pt. sent in by a medical professional or institution (, NOAM, HUMAN RESOURCES TECHNICIAN, urgent care, hospital, or custodial...) When possible be specific @ -No Did you speak to anyone other than the patient for history (EMS, parent, family, police, friend...)? What history was obtained from this source @ -No Did you review nursing and triage notes (agree or disagree)? Why? @ -I reviewed and agree with nursing and triage notes Were old charts reviewed (outside hosp., previous admission, EMS record, old EKG, old radiological studies, urgent care reports/EKG's, custodial records)? Report findings @ -No old charts were reviewed Differential Diagnosis (chest pain, altered mental status, abdominal pain women, abdominal pain men, vaginal bleeding, weakness, fever, dyspnea, syncope, headache, dizziness, GI bleed, back pain, seizure, CVA, palpatations, mental hea lth, musculoskeletal)? @ -Skin avulsion, laceration, open fracture, this list is not all inclusive EKG interpreted by me (3pts min.). @ -None X-rays interpreted by me (1pt min.). @ -None done CT interpreted by me (1pt min.). @ -None done U/S interpreted by me (1pt. min.). @ -None done What testing was considered but not performed or refused? (CT, X-rays, U/S, labs)? Why? @ -X-ray imaging was considered for at this time. On evaluation patient noted to have superficial skin avulsion with minimal concern for open fracture. Patient is in agreement with deferring x-ray imaging at this time. What meds were considered but not given or refused? Why? @ -None Did you discuss the management of the patient with other professionals (professionals i.e. NOAM Fernandes, HUMAN RESOURCES TECHNICIAN, lab, RT, psych nurse, pediatric social worker, vehicle fare collector, teacher, articulation officer, shelter case manager)? Give summary @ -No Was smoking cessation discussed for >3mins.? @ -No Was critical care preformed (if so, how long)? @ -No Were there social determinants of health that impacted care today? How? (Homelessness, low income, unemployed, alcoholism, drug addiction, transportation, low edu. Level, literacy, decrease access to med. care, fci, rehab)? @ -No Was there de-escalation of care discussed even if they declined (Discuss DNR or withdrawal of care, Hospice)? DNR status @ -No What co-morbidities impacted this encounter? (DM, HTN, Smoking, COPD, CAD, Cancer, CVA, ARF, Chemo, Hep., AIDS, mental health diagnosis, sleep apnea, morbid obesity)? @ -None Was patient admitted / discharged? Hospital course, mention meds given and route, prescriptions, significant lab abnormalities, going to OR and other pertinent info. @Discharge. 73-year-old male with skin avulsion to the distal third and fourth digit. On review of the distal right fourth digit there is a mild skin avulsion with no signs of active bleeding. Distal third digit active bleeding with a skin avulsion measuring approximately 5 mm. he is provided with his tetanus vaccination. Area was thoroughly cleansed with sterile water and Betadine solution. Surgifoam applied over avulsion and wrapped with gauze. Recommend that patient follow-up with primary care provider next week in the next 3 to 5 days for wound reevaluation. Recommend that he continue to keep area clean and dry. All questions have been answered at bedside and strict return parameters discussed with the patient he is verbalized understanding. Discussed with Dr. Martinez Undiagnosed new problem with uncertain prognosis? @ -No Drug Therapy requiring intensive monitoring for toxicity (Heparin, Nitro, Insulin, Cardizem)? @ -No Were any procedures done? @ -No Diagnosis/symptom? @ -Skin avulsion Acute, or Chronic, or Acute on Chronic? @ -Acute Uncomplicated (without systemic symptoms) or Complicated (systemic symptoms)? @ -Uncomplicated Side effects of treatment? @ -No Exacerbation, Progression, or Severe Exacerbation? @ -No Poses a threat to life or bodily function? How? (Chest pain, [place], [place], pneumonia, PE, COPD, DKA, ARF, appy, cholecystitis, CVA, Diverticulitis, Homicidal, Suicidal, threat to staff... and all critical care pts) @ -No Disposition Clinical Impression: Avulsion, skin Disposition: HOME SELF-CARE Condition: Good Instructions (If sedation given, give patient instructions): Skin Avulsion (ED) Additional Instructions: Please return to the Emergency Department if symptoms worsen or any other concerns. Continue to keep area clean and dry. Recommend that you follow-up with your primary care provider in 4 to 5 days for wound recheck. Is patient prescribed a controlled substance at d/c from ED?: No Referrals: [facility]inic [Primary Care Provider] - 1-2 days Time of Disposition: 10:42
[2024-09-03] MEDS: DIPH,PERTUS(ACELL)TETVAC-LF 0.5 ML VIAL IM ONE (10:19)
[2024-09-03 10:56] VITALS: BP 136/79; PULSE 97; TEMP 98.1
== END 2024-09-03 10:49 | disposition home or self-care (01) ==
LOC: EC 09:51
DX: S61.304A Unspecified open wound of right ring finger with damage to nail, initial encounter (principal); S61.302A Unspecified open wound of right middle finger with damage to nail, initial encounter; Z23 Encounter for immunization; W27.4XXA Contact with kitchen utensil, initial encounter
CPT/HCPCS: 90471; 90715; 99283

== ENCOUNTER → 2024-10-27 | Outpatient (CLI) | payer OTHER, MEDICARE ==
[2024-10-27 15:58] LABS: Prostate Specific Antigen <0.01 ng/mL (0.000-6.500); Testosterone <10.00 ng/dL (86.98-780.10)
== END | disposition home or self-care (01) ==
LOC: LABWHC1 09:08
PROVIDERS: ATTEND Radiology Radiation Oncology
DX: C61 Malignant neoplasm of prostate (principal); M89.9 Disorder of bone, unspecified
CPT/HCPCS: 36415; 84153; 84403

== ENCOUNTER → 2025-01-13 | Outpatient (CLI) | payer OTHER, MEDICARE ==
--- NOTE | 2025-01-15 19:39 | PE ---
EXAMINATION TYPE: PET CT fusion skull to thigh DATE OF EXAM: 01/13/2025 CLINICAL INDICATION:Male, 74 years old with history of C61 prostate ca; TECHNIQUE: Following the intravenous administration of 6.01 mCi of Ga-68 Illuccix (PSMA), whole bod y images are performed from the skull base to the midthigh. Images are reviewed on the computer in t he coronal, axial, and sagittal planes. Reconstructed rotating images are created on independent [employer] kstation and reviewed on the computer. A non-contrast CT is performed in conjunction with the PET s can. CT DLP: 980.52 mGycm, Automated exposure control for dose reduction was used. COMPARISON: CT 04/11/2022, PET/CT 07/09/2024, 07/11/2023, MRI: 07/26/2024, 06/03/2023 FINDINGS: Mediastinal SUV mean is 1.5. Hepatic parenchyma SUV mean is 4.0. SKULL BASE AND NECK: No suspicious radiotracer activity. CHEST, MEDIASTINUM, AND HILAR REGION: No suspicious radiotracer activity. ABDOMEN AND PELVIS: Post surgical changes from prostatectomy. No suspicious soft tissue or radiotracer activity within th e surgical bed. MUSCULOSKELETAL STRUCTURES: Redemonstration of sclerotic lesion measuring 1.4 cm within the sacrum. There is no suspicious FDG ac tivity above background on today's exam. Demonstrates a maximum SUV 2.0. Previously demonstrated a ma ximum SUV of 17.0. OTHER CT: Postsurgical changes from anterior cervical fusion posterior cervical decompression. Right AC joint arthropathy. Multilevel degenerative changes of the spine. Vertebral augmentation changes in volving the L1 vertebral body. Degenerative changes bilateral SI joints. Osteoarthritic changes of flavio th hips. Chronic elevation of the right hemidiaphragm. Atherosclerotic calcification of the aorta and its branches. Gallbladder is surgically absent. A few punctate calcifications within the pancreas wh ich may represent sequelae of chronic pancreatitis. Punctate metallic density within the right lower anterior abdominal wall subcutaneous tissues measuring up to 4 mm. 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 This is at background levels now. No other suspicious radiotracer activity identified. [facility], , 01/15/2025 7:37 PM
== END | disposition home or self-care (01) ==
LOC: RADPETMAIN 12:38
PROVIDERS: ATTEND Urology
DX: C61 Malignant neoplasm of prostate (principal); Z98.890 Other specified postprocedural states
CPT/HCPCS: 78815; A9596